=== PATIENT | female | born 1995 | race Caucasian/White ===

== ENCOUNTER 2018-01-30 17:47 | Emergency (ER) | payer OTHER ==
[2018-01-30 18:01] VITALS: BP 149/93; PULSE 85; RESP 16; TEMP 98.7
[2018-01-30] MEDS ORDERED: ONDANSETRON 4 MG ODT STARTER PACK 2 TAB BTL PO STA (18:30)
--- NOTE | 2018-01-30 18:31 | ED ---
Abdominal Pain HPI - General Chief Complaint: Abdominal Pain Stated Complaint: vomiting/diarrhea Time Seen by Provider: 01/30/18 18:02 Source: patient Mode of arrival: ambulatory Limitations: no limitations - History of Present Illness Initial Comments: 22-year-old female patient presents to the emergency department today requesting work note. Patient states she called in this morning because she was sick with vomiting and diarrhea. Patient states that her father is sick with similar symptoms this morning. States that she is currently feeling better however her work requires her to have a note to return. Patient states that she is experiencing some mild nausea. States that she has been able to keep down fluids since her last vomiting episode at 5:00. She denies any abdominal pain, fever, or chills with this. Denies any previous abdominal surgeries. She denies any hematemesis, hematochezia, or melena. Patient denies any recent rash, shortness breath, chest pain, back pain, numbness, tingling, dizziness, weakness, hematuria, dysuria, urinary urgency, urinary frequency, headache, visual changes, or any other complaints. She denies any chance of . - Related Data Home Medications Medication Instructions Recorded Confirmed Ibuprofen [Motrin Ib] 400 mg PO Q6H PRN 01/30/18 01/30/18 Allergies Allergy/AdvReac Type Severity Reaction Status Date / Time No Known Allergies Allergy Verified 01/30/18 18:31 Review of Systems ROS Statement: Those systems with pertinent positive or pertinent negative responses have been documented in the HPI. ROS Other: All systems not noted in ROS Statement are negative. Past Medical History Past Medical History: No Reported History History of Any Multi-Drug Resistant Organisms: None Reported Past Surgical History: Orthopedic Surgery Additional Past Surgical History / Comment(s): Left hand tendon surgery Past Psychological History: ADD/ADHD Smoking Status: Never smoker Past Alcohol Use History: None Reported Past Drug Use History: None Reported General Exam Limitations: no limitations General appearance: alert, in no apparent distress, other (This is a well- developed, obese adult female patient in no acute distress. Vital signs upon presentation are temperature 98.7F, pulse 85, respirations 16, blood pressure 149/93, pulse ox 97% on room air.) Eye exam: Present: normal appearance, PERRL, EOMI. Absent: scleral icterus, conjunctival injection, periorbital swelling ENT exam: Present: normal exam, normal oropharynx, mucous membranes moist Respiratory exam: Present: normal lung sounds bilaterally. Absent: respiratory distress, wheezes, rales, rhonchi, stridor Cardiovascular Exam: Present: regular rate, normal rhythm, normal heart sounds. Absent: systolic murmur, diastolic murmur, rubs, gallop, clicks GI/Abdominal exam: Present: soft, normal bowel sounds. Absent: distended, tenderness, guarding, rebound, rigid Neurological exam: Present: alert, oriented X3, CN II-XII intact Psychiatric exam: Present: normal affect, normal mood Skin exam: Present: warm, dry, intact, normal color. Absent: rash Course Vital Signs 01/30/18 17:57 Temperature 98.7 F Pulse Rate 85 Respiratory 16 Rate Blood Pressure 149/93 O2 Sat by Pulse 97 Oximetry Medical Decision Making - Medical Decision Making 22-year-old female patient presents to the emergency department today requesting a work note after having vomiting and diarrhea this morning. Patient states she is currently feeling well. I did offer to perform lab testing and treat her symptoms however she states that she does not want that she only wants a work note. Patient's vital signs are stable. She is afebrile. He'll discharge her at this time given work note to return tomorrow. She is instructed to follow-up with her primary care physician for recheck in 1-2 days. Return parameters discussed in detail. She verbalizes understanding and agrees this plan. Disposition Clinical Impression: Gastroenteritis Disposition: HOME SELF-CARE Condition: Good Instructions: Gastroenteritis (ED) Additional Instructions: Start with clear liquid diet and advance as tolerated. Follow-up through primary care physician for recheck 1-2 days. Return here immediately for any new, worsening, or concerning symptoms. Is patient prescribed a controlled substance at d/c from ED?: No Referrals: Mena Diggs MD [Primary Care Provider] - 1-2 days Time of Disposition: 18:31
== END 2018-01-30 18:55 | disposition home or self-care (01) ==
LOC: EC 17:47
DX: K52.9 Noninfective gastroenteritis and colitis, unspecified (principal); Z02.79 Encounter for issue of other medical certificate
CPT/HCPCS: 99283; S0119

== ENCOUNTER 2018-04-03 14:27 | Emergency (ER) | payer OTHER ==
--- NOTE | 2018-04-03 15:11 | ED ---
General Adult HPI - General Chief complaint: ENT Stated complaint: throat pain Source: patient, RN notes reviewed, old records reviewed Mode of arrival: ambulatory Limitations: no limitations - History of Present Illness Initial comments: 23-year-old female patient with no pertinent past medical history presents to ED with 2 day history of sore throat, dry cough, rhinitis. Patient states that all of these have been going on for approximately 2 days. 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 Patient denies nausea vomiting diarrhea, sinus pressure, fever chills, abdominal pain, chest pain, shortness of breath. Systemic: Pt denies fatigue, myalgia, fever/chills, rash. Pt denies weakness, night sweats, weight loss. Neuro: Pt denies headache, visual disturbances, syncope or pre-syncope. HEENT: Pt denies ocular discharge or irritation, otalgia, rhinorrhea, pharyngitis or notable lymphadenopathy. Cardiopulmonary: Pt denies chest pain, SOB, heart palpitations, dyspnea on exertion. Abdominal/GI: Pt denies abdominal pain, n/v/d. : Pt denies dysuria, burning w/ urination, frequency/urgency. Denies new onset urinary or bowel incontinence. MSK: Pt denies myalgia, loss of strength or function in extremities. Neuro: Pt denies new onset weakness, paresthesias. - Related Data Home Medications Medication Instructions Recorded Confirmed Ibuprofen [Motrin Ib] 400 mg PO Q6H PRN 01/30/18 01/30/18 Previous Rx's Medication Instructions Recorded Fluticasone Propionate [Flonase 1 - 2 spray EA NOSTRIL DAILY 5 04/03/18 Allergy Relief] Days ml Allergies Allergy/AdvReac Type Severity Reaction Status Date / Time No Known Allergies Allergy Verified 04/03/18 14:37 Review of Systems ROS Statement: Those systems with pertinent positive or pertinent negative responses have been documented in the HPI. ROS Other: All systems not noted in ROS Statement are negative. Past Medical History Past Medical History: No Reported History History of Any Multi-Drug Resistant Organisms: None Reported Past Surgical History: Orthopedic Surgery Additional Past Surgical History / Comment(s): Left hand tendon surgery Past Psychological History: ADD/ADHD Smoking Status: Never smoker Past Alcohol Use History: None Reported Past Drug Use History: None Reported General Exam - General Exam Comments Initial Comments: Constitutional: NAD, AOX3, Pt has pleasant affect. HEENT: NC/AT, trachea midline, neck supple, no lymphadenopathy. Posterior pharynx non erythematous, without exudates. External ears appear normal, without discharge. Mucous membranes moist. Eyes PERRLA, EOM intact. There is no scleral icterus. No pallor noted. Cardiopulmonary: RRR, no murmurs, rubs or gallops, no JVD noted. Lungs CTAB in anterior and posterior polo. No peripheral edema. Abdominal exam: Abdomen soft and non-distended. Abdomen non-tender to palpation in all 4 quadrants. Bowel sounds active in LLQ. No hepatosplenomegaly. No ecchymosis Neuro: CN II-XII grossly intact. No nuchal rigidity. MSK: No posterior calf tenderness bilaterally, homans sign negative bilaterally. Posterior tibialis and radial pulse +2 bilaterally. Sensation intact in upper and lower extremities. Full active ROM in upper and lower extremities, 5/5 stregnth. Limitations: no limitations Course Vital Signs 04/03/18 04/03/18 14:35 16:09 Temperature 98.1 F 97.6 F Pulse Rate 97 82 Respiratory 16 18 Rate Blood Pressure 185/93 176/106 O2 Sat by Pulse 99 99 Oximetry Medical Decision Making - Medical Decision Making 23-year-old female patient with no pertinent past medical history presents to ED with 2 day history of sore throat, dry cough, rhinitis. Patient states that all of these have been going on for approximately 2 days. 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 Patient denies nausea vomiting diarrhea, sinus pressure, fever chills, abdominal pain, chest pain, shortness of breath. Physical exam did not display acute pathology. Systems examined including neuro, HEENT, cardiopulmonary, abdominal, MSK. Laboratory investigations influenza and GABHS swabs negative. PT unable to provide urine sample. Patient blood pressure revealed to be moderately elevated ER. Patient states that she does have history of elevated blood pressure, was. See medicated for this issue, is not currently medicated. Patient to follow with primary care provider about hypertension. Chest x-ray did not display any acute process. Patient diagnosed with likely viral upper respiratory infection. Due to short timeline , new versus hampering cystitis, patient to continue to monitor symptoms and no abx prescribed. Patient prescribed flonase to decrease symptoms. Patient to follow up with primary care provider in 1-2 days to continue to evaluate the symptoms. Patient to return to ED if symptoms do not improve within 3 days or if new signs or symptoms develop including worsening cough, persisting sore throat, nausea vomiting diarrhea, fever chills, headache, changes in vision, any other new symptoms. Case discussed with Dr. Cobian. - Lab Data Lab Results 04/03/18 04/03/18 Range/Units 14:55 14:55 Influenza Type A RNA Not Detected (Not Detectd) Influenza Type B (PCR) Not Detected (Not Detectd) Group A Strep Rapid Negative (Negative) Disposition Clinical Impression: Upper respiratory infection Disposition: HOME SELF-CARE Condition: Good Instructions: Upper Respiratory Infection (ED) Additional Instructions: Patient to adhere to previously discussed treatment plan and will take medication(s) as directed. Patient to follow up with PCP in 1-2 days. Patient to return to ED if symptoms do not improve. Prescriptions: Fluticasone Propionate [Flonase Allergy Relief] 1 - 2 spray EA NOSTRIL DAILY 5 Days ml Is patient prescribed a controlled substance at d/c from ED?: No Referrals: Mena Diggs MD [Primary Care Provider] - 1-2 days Time of Disposition: 16:33
[2018-04-03 16:11] VITALS: BP 176/106; PULSE 82; RESP 18; TEMP 97.6
--- NOTE | 2018-04-03 16:23 | XR ---
EXAMINATION TYPE: XR chest 2V DATE OF EXAM: 04/03/2018 COMPARISON: None INDICATION: Pain, sore throat TECHNIQUE: Frontal and lateral views of the chest are obtained. FINDINGS: The heart size is normal. The pulmonary vasculature is normal. The lungs are clear. IMPRESSION: 1. No acute pulmonary process.
== END 2018-04-03 16:41 | disposition home or self-care (01) ==
LOC: EC 14:27
DX: J06.9 Acute upper respiratory infection, unspecified (principal); I10 Essential (primary) hypertension
CPT/HCPCS: 71046; 87081; 87430; 87502; 99284

== ENCOUNTER 2018-05-07 17:17 | Emergency (ER) | payer OTHER ==
[2018-05-07 17:30] VITALS: RESP 18; TEMP 98
--- NOTE | 2018-05-07 18:46 | ED ---
General Adult HPI - General Chief complaint: Upper Respiratory Infection Stated complaint: congestion/upset stomach Time Seen by Provider: 05/07/18 18:36 Source: patient, RN notes reviewed Mode of arrival: ambulatory Limitations: no limitations - History of Present Illness Initial comments: 23-year-old female presents to the emergency department for work release. Patient states she was congested today and did not want to go to work. Patient states that she was told by her job she needed a work note letting her return to work tomorrow. Patient states she has had congestion times one day. Patient denies any sore throat or cough. She denies any fevers or chills. She states she does not need anything done but just needs her work note. Patient has no other complaints at this time including shortness of breath, chest pain, abdominal pain, nausea or vomiting, headache, or visual changes. - Related Data Home Medications Medication Instructions Recorded Confirmed Ibuprofen [Motrin Ib] 400 mg PO Q6H PRN 01/30/18 01/30/18 Previous Rx's Medication Instructions Recorded Fluticasone Propionate [Flonase 1 - 2 spray EA NOSTRIL DAILY 5 04/03/18 Allergy Relief] Days ml guaiFENesin [Mucinex] 600 mg PO Q12H PRN #20 tab.er.12h 05/07/18 Allergies Allergy/AdvReac Type Severity Reaction Status Date / Time No Known Allergies Allergy Verified 05/07/18 17:30 Review of Systems ROS Statement: Those systems with pertinent positive or pertinent negative responses have been documented in the HPI. ROS Other: All systems not noted in ROS Statement are negative. Past Medical History Past Medical History: No Reported History History of Any Multi-Drug Resistant Organisms: None Reported Past Surgical History: Orthopedic Surgery Additional Past Surgical History / Comment(s): Left hand tendon surgery Past Psychological History: ADD/ADHD Smoking Status: Never smoker Past Alcohol Use History: None Reported Past Drug Use History: None Reported General Exam Limitations: no limitations General appearance: alert, in no apparent distress Head exam: Present: atraumatic, normocephalic, normal inspection Eye exam: Present: normal appearance, PERRL, EOMI. Absent: scleral icterus, conjunctival injection, periorbital swelling ENT exam: Present: normal oropharynx, mucous membranes moist, TM's normal bilaterally, normal external ear exam, other (Mild nasal congestion noted, no edema or erythema noted of the sinuses, no tenderness to the maxillary or frontal sinuses with palpation.) Neck exam: Present: normal inspection, full ROM. Absent: tenderness, meningismus, lymphadenopathy Respiratory exam: Present: normal lung sounds bilaterally. Absent: respiratory distress, wheezes, rales, rhonchi, stridor Cardiovascular Exam: Present: regular rate, normal rhythm, normal heart sounds. Absent: systolic murmur, diastolic murmur, rubs, gallop, clicks GI/Abdominal exam: Present: soft, normal bowel sounds. Absent: distended, tenderness, guarding, rebound, rigid Neurological exam: Present: alert, oriented X3, CN II-XII intact Psychiatric exam: Present: normal affect, normal mood Course Vital Signs 05/07/18 05/07/18 17:26 18:59 Temperature 98.0 F Pulse Rate 97 93 Respiratory 18 18 Rate Blood Pressure 149/105 167/97 O2 Sat by Pulse 97 100 Oximetry Medical Decision Making - Medical Decision Making 23-year-old female presents to the emergency department for a chief complaint of congestion times one day. Patient states she did not want her to work today and needs a work note for release. She does not have any fever, sore throat, cough. Patient states other than the congestion she is feeling fine and needs a work note to release her to go back to work tomorrow. I did give patient note. I also offered to test patient for the flu but given that she is not having fever she does not think this is necessary. I did write prescription for Mucinex. Discussed following up with primary care for these symptoms as well as hypertension and returning if she has any worsening symptoms. Disposition Clinical Impression: Sinus congestion Disposition: HOME SELF-CARE Condition: Good Instructions: Cold Symptoms (ED) Additional Instructions: Take Mucinex [id number]. Please follow up with primary care in 1-2 days. Return to the emergency department if you have any worsening symptoms. Prescriptions: guaiFENesin [Mucinex] 600 mg PO Q12H PRN #20 tab.er.12h PRN Reason: Congestion Is patient prescribed a controlled substance at d/c from ED?: No Referrals: Mena Diggs MD [Primary Care Provider] - 1-2 days Time of Disposition: 18:46
[2018-05-07 19:01] VITALS: BP 167/97; PULSE 93
== END 2018-05-07 18:59 | disposition home or self-care (01) ==
LOC: EC 17:17
DX: R09.81 Nasal congestion (principal); K30 Functional dyspepsia; Z98.890 Other specified postprocedural states
CPT/HCPCS: 99283

== ENCOUNTER → 2018-06-11 | Outpatient (CLI) | payer OTHER ==
[2018-06-11 14:30] LABS: Basophils % (A) 0 %; Eosinophils # (A) 0.1 k/uL (0-0.7); Eosinophils % (A) 1 %; HCT 42.8 % (34.0-46.0); HGB 13.8 gm/dL (11.4-16.0); Lymphocytes # (A) 2.4 k/uL (1.0-4.8); Lymphocytes % (A) 28 %; MCH 27.8 pg (25.0-35.0); MCHC 32.2 g/dL (31.0-37.0); MCV 86.1 fL (80.0-100.0); Mean Platelet Volume 5.7; Monocytes # (A) 0.4 k/uL (0-1.0); Monocytes % (A) 5 %; Neutrophils # (A) 5.7 k/uL (1.3-7.7); Neutrophils % (A) 65 %; Platelet Count 375 k/uL (150-450); RBC 4.97 m/uL (3.80-5.40); RDW 13.6 % (11.5-15.5); WBC 8.7 k/uL (3.8-10.6)
[2018-06-11 23:28] LABS: Calcium 9.3 mg/dL (8.7-10.3); LDL Cholesterol,Calculated 119.6 mg/dL (0.0-131.0); Potassium 4.7 mmol/L (3.5-5.5); VLDL Calculation 17.4 mg/dL (5.00-40.00)
== END ==
LOC: LABWHC1 13:43
PROVIDERS: ATTEND Internal Medicine
DX: Z13.0 Encounter for screening for diseases of the blood and blood-forming organs and certain disorders involving the immune mechanism (principal); Z13.228 Encounter for screening for other metabolic disorders; Z13.220 Encounter for screening for lipoid disorders; Z13.29 Encounter for screening for other suspected endocrine disorder
CPT/HCPCS: 36415; 80048; 80061; 82306; 84443; 85025

== ENCOUNTER 2018-07-23 17:18 | Emergency (ER) | payer OTHER ==
[2018-07-23 17:30] VITALS: BP 162/94; PULSE 82; RESP 18; TEMP 98.7
[2018-07-23] MEDS ORDERED: FAMOTIDINE 20 MG TAB PO STA (17:46)
[2018-07-23] MEDS ORDERED: methylPREDNISolone SOD SUCCI 125 MG/2 ML VIAL IM ONE (17:46)
[2018-07-23] MEDS ORDERED: diphenhydrAMINE 50 MG CAP PO STA (17:46)
--- NOTE | 2018-07-23 17:58 | ED ---
Allergic Reaction HPI - General Chief complaint: Allergic Reaction Stated complaint: Swollen lip Time Seen by Provider: 07/23/18 17:33 Source: patient, RN notes reviewed, old records reviewed Mode of arrival: ambulatory Limitations: no limitations - History of Present Illness Initial Comments: Patient is a 23-year-old female presents emergency department today with lower lip swelling. She reports she didn't do anything have any new exposures to cause reaction. She reports that yesterday she did have some upper lip swelling. She is currently healing from a cold sore in her upper lip. Patient has had no nausea or vomiting. No chest pain shortness breath. She denies any tongue swelling or difficulty breathing. She is coughing. - Related Data Home Medications Medication Instructions Recorded Confirmed Ibuprofen [Motrin Ib] 400 mg PO Q6H PRN 01/30/18 01/30/18 Previous Rx's Medication Instructions Recorded Fluticasone Propionate [Flonase 1 - 2 spray EA NOSTRIL DAILY 5 04/03/18 Allergy Relief] Days ml guaiFENesin [Mucinex] 600 mg PO Q12H PRN #20 tab.er.12h 05/07/18 Famotidine [Pepcid] 20 mg PO BID #14 tablet 07/23/18 diphenhydrAMINE [Benadryl] 25 mg PO QID PRN #20 capsule 07/23/18 predniSONE 10 mg PO DAILY #15 tab 07/23/18 Allergies Allergy/AdvReac Type Severity Reaction Status Date / Time No Known Allergies Allergy Verified 07/23/18 17:30 Review of Systems ROS Statement: Those systems with pertinent positive or pertinent negative responses have been documented in the HPI. ROS Other: All systems not noted in ROS Statement are negative. Past Medical History Past Medical History: No Reported History History of Any Multi-Drug Resistant Organisms: None Reported Past Surgical History: Orthopedic Surgery Additional Past Surgical History / Comment(s): Left hand tendon surgery Past Psychological History: ADD/ADHD Smoking Status: Never smoker Past Alcohol Use History: None Reported Past Drug Use History: None Reported General Exam - General Exam Comments Initial Comments: 23-year-old female. Alert and oriented. No significant distress. Limitations: no limitations General appearance: alert, in no apparent distress Head exam: Present: atraumatic, normocephalic, normal inspection Eye exam: Present: normal appearance, PERRL, EOMI. Absent: scleral icterus, conjunctival injection, periorbital swelling ENT exam: Present: normal exam, mucous membranes moist, other (Patient has evidence of lower lip swelling over the right half of her lower lip. No trauma no bruising noted. No tongue swelling noted.) Neck exam: Present: normal inspection. Absent: tenderness, meningismus, lymphadenopathy Respiratory exam: Present: normal lung sounds bilaterally. Absent: respiratory distress, wheezes, rales, rhonchi, stridor Cardiovascular Exam: Present: regular rate, normal rhythm, normal heart sounds. Absent: systolic murmur, diastolic murmur, rubs, gallop, clicks GI/Abdominal exam: Present: soft, normal bowel sounds. Absent: distended, tenderness, guarding, rebound, rigid Extremities exam: Present: normal inspection, full ROM, normal capillary refill. Absent: tenderness, pedal edema, joint swelling, calf tenderness Back exam: Present: normal inspection Neurological exam: Present: alert, oriented X3, CN II-XII intact Psychiatric exam: Present: normal affect, normal mood Skin exam: Present: warm, dry, intact, normal color. Absent: rash Course Vital Signs 07/23/18 17:27 Temperature 98.7 F Pulse Rate 82 Respiratory 18 Rate Blood Pressure 162/94 O2 Sat by Pulse 100 Oximetry Medical Decision Making - Medical Decision Making This is a well-appearing 23-year-old female presents for shortness of lower lip swelling. No acute onset. Patient poor she did have some swelling earlier in the week. Currently being treated for a cold sore that is healing. Discussed concern for angioedema. Shouldn't has no medications that she is on. Patient otherwise appears well. She has no signs of respiratory distress or any tongue swelling or difficulty breathing. Patient was given IM Solu-Medrol Benadryl Pepcid. Discussed cool compresses over the area. Discussed PCP follow-up. All questions answered. Disposition Clinical Impression: Angioedema of lips Disposition: HOME SELF-CARE Condition: Good Instructions (If sedation given, give patient instructions): Angioedema (ED) Additional Instructions: Patient advised to follow-up with your primary care doctor. If there is any difficulty breathing or significant tongue swelling please return to the ER for reevaluation. Cool compresses over the lip. Prescriptions: diphenhydrAMINE [Benadryl] 25 mg PO QID PRN #20 capsule PRN Reason: Itching Famotidine [Pepcid] 20 mg PO BID #14 tablet predniSONE 10 mg PO DAILY #15 tab Is patient prescribed a controlled substance at d/c from ED?: No Referrals: Mena Diggs MD [Primary Care Provider] - 1-2 days Time of Disposition: 17:53
== END 2018-07-23 18:00 | disposition home or self-care (01) ==
LOC: EC 17:18
DX: T78.3XXA Angioneurotic edema, initial encounter (principal); R05 Cough
CPT/HCPCS: 99283; 96372; J2930

== ENCOUNTER 2018-09-21 16:38 | Emergency (ER) | payer OTHER ==
[2018-09-21 16:44] VITALS: BP 139/89; PULSE 92; RESP 18; TEMP 97.7
--- NOTE | 2018-09-21 17:56 | ED ---
ENT HPI - General Chief complaint: ENT Stated complaint: lip swelling Time Seen by Provider: 09/21/18 16:46 Source: patient, RN notes reviewed, old records reviewed Mode of arrival: ambulatory Limitations: no limitations - History of Present Illness Initial comments: This is a 23-year-old female the ER for evaluation of lip swelling, patient has history of lip swelling seen of an upset about multiple, patient recently. She dietary decisions. 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 No shortness of breath no tongue swelling. He took Benadryl with mild improvement MD complaint: other (Lip swelling) Location: upper lip, lower lip Severity: mild Severity scale (1-10): 2 Consistency: constant Improves with: none Worsens with: none - Related Data Home Medications Medication Instructions Recorded Confirmed Cholecalciferol (Vitamin D3) 2,000 unit PO DAILY 09/21/18 09/21/18 [Vitamin D3] diphenhydrAMINE [Benadryl] 25 mg PO DAILY PRN 09/21/18 09/21/18 Allergies Allergy/AdvReac Type Severity Reaction Status Date / Time chicken derived [Chicken] Allergy Swelling Verified 09/21/18 17:22 Review of Systems ROS Statement: Those systems with pertinent positive or pertinent negative responses have been documented in the HPI. ROS Other: All systems not noted in ROS Statement are negative. Past Medical History Past Medical History: No Reported History History of Any Multi-Drug Resistant Organisms: None Reported Past Surgical History: Orthopedic Surgery Additional Past Surgical History / Comment(s): Left hand tendon surgery Past Psychological History: ADD/ADHD Smoking Status: Never smoker Past Alcohol Use History: None Reported Past Drug Use History: None Reported General Exam - General Exam Comments Initial Comments: Mild lip swelling, no tongue swelling, no stridor Limitations: no limitations General appearance: alert, in no apparent distress Head exam: Present: atraumatic, normocephalic, normal inspection Eye exam: Present: normal appearance, PERRL, EOMI. Absent: scleral icterus, conjunctival injection, periorbital swelling ENT exam: Present: normal exam, mucous membranes moist Neck exam: Present: normal inspection. Absent: tenderness, meningismus, lymphadenopathy Respiratory exam: Present: normal lung sounds bilaterally. Absent: respiratory distress, wheezes, rales, rhonchi, stridor Cardiovascular Exam: Present: regular rate, normal rhythm, normal heart sounds. Absent: systolic murmur, diastolic murmur, rubs, gallop, clicks GI/Abdominal exam: Present: soft, normal bowel sounds. Absent: distended, tenderness, guarding, rebound, rigid Extremities exam: Present: normal inspection, full ROM, normal capillary refill. Absent: tenderness, pedal edema, joint swelling, calf tenderness Back exam: Present: normal inspection Neurological exam: Present: alert, oriented X3, CN II-XII intact Psychiatric exam: Present: normal affect, normal mood Skin exam: Present: warm, dry, intact, normal color. Absent: rash Course Vital Signs 09/21/18 16:40 Temperature 97.7 F Pulse Rate 92 Respiratory 18 Rate Blood Pressure 139/89 O2 Sat by Pulse 99 Oximetry Medical Decision Making - Medical Decision Making Voice 3 female the ER for evaluation. Patient is currently having lab swelling, no other swelling noted. Patient be discharged on steroids and antihistamines. Disposition Clinical Impression: Lip swelling Disposition: HOME SELF-CARE Condition: Good Instructions (If sedation given, give patient instructions): Angioedema (ED) Is patient prescribed a controlled substance at d/c from ED?: No Referrals: Mena Diggs MD [Primary Care Provider] - 1-2 days
== END 2018-09-21 18:22 | disposition home or self-care (01) ==
LOC: EC 16:38
DX: R22.0 Localized swelling, mass and lump, head (principal); Z79.899 Other long term (current) drug therapy; Z91.018 Allergy to other foods
CPT/HCPCS: 99283

== ENCOUNTER 2018-10-23 15:03 | Emergency (ER) | payer OTHER ==
[2018-10-23] MEDS ORDERED: methylPREDNISolone SOD SUCCI 125 MG/2 ML VIAL IV STA (15:41)
[2018-10-23] MEDS ORDERED: FAMOTIDINE 20 MG/2 ML VIAL IV STA (15:41)
[2018-10-23] MEDS ORDERED: diphenhydrAMINE 50 MG/ML 1 ML VIAL IVP STA (15:41)
[2018-10-23] MEDS ORDERED: SODIUM CHLORIDE 0.9% 1,000 ML IV STA (15:41)
--- NOTE | 2018-10-23 15:47 | ED ---
General Adult HPI - General Chief complaint: Allergic Reaction Stated complaint: Allergic reaction, swollen lips & hives Time Seen by Provider: 10/23/18 15:13 Source: patient, RN notes reviewed Mode of arrival: ambulatory Limitations: no limitations - History of Present Illness Initial comments: Patient is a pleasant 23-year-old female presenting to the emergency Department with complaints of swelling of the lips. Patient also has noticed rash on her arms, right more than left. Rash is itchy. Patient denies any difficulty in breathing. Patient denies any swelling of her tongue or throat. Patient does have a history of similar symptoms previously however is unclear why. Patient is unable to identify anything that could be causing it at this time. Patient does not take any routine medications. Patient did take 25 mg of Benadryl earlier with mild improvement of symptoms. Onset of symptoms was less than an hour ago. - Related Data Previous Rx's Medication Instructions Recorded predniSONE 20 mg PO BID #10 tab 10/23/18 Allergies Allergy/AdvReac Type Severity Reaction Status Date / Time chicken derived [Chicken] Allergy Swelling Verified 10/23/18 16:26 Review of Systems ROS Statement: Those systems with pertinent positive or pertinent negative responses have been documented in the HPI. ROS Other: All systems not noted in ROS Statement are negative. Constitutional: Denies: fever Eyes: Denies: eye pain ENT: Denies: ear pain Respiratory: Denies: cough, dyspnea, stridor Cardiovascular: Denies: chest pain Endocrine: Denies: fatigue Gastrointestinal: Denies: abdominal pain, nausea Genitourinary: Denies: dysuria Musculoskeletal: Denies: back pain Skin: Denies: rash Neurological: Denies: weakness Past Medical History Past Medical History: No Reported History History of Any Multi-Drug Resistant Organisms: None Reported Past Surgical History: Orthopedic Surgery Additional Past Surgical History / Comment(s): Left hand tendon surgery Past Psychological History: ADD/ADHD Smoking Status: Never smoker Past Alcohol Use History: None Reported Past Drug Use History: None Reported General Exam Limitations: no limitations General appearance: alert, in no apparent distress Head exam: Present: atraumatic Eye exam: Present: normal appearance, PERRL, EOMI ENT exam: Present: other (Mild to moderate angioedema of the lips. No angioedema of the tongue or pharynx or uvula. No dyspnea.) Neck exam: Present: normal inspection. Absent: tenderness Respiratory exam: Present: normal lung sounds bilaterally. Absent: respiratory distress, wheezes, stridor Cardiovascular Exam: Present: regular rate, normal rhythm GI/Abdominal exam: Present: soft. Absent: tenderness Extremities exam: Present: normal inspection Neurological exam: Present: alert Psychiatric exam: Present: normal affect, normal mood Skin exam: Present: urticaria (Mild urticarial rash right greater than left arm, more so on the forearm.) Course Vital Signs 10/23/18 10/23/18 15:04 15:56 Temperature 98.3 F Pulse Rate 93 95 Respiratory 18 18 Rate Blood Pressure 189/109 129/88 O2 Sat by Pulse 98 99 Oximetry Medical Decision Making - Medical Decision Making Patient reevaluated and improved. Lip swelling is approximately 50% and is now mild. Still no dyspnea or swelling of the tongue or throat. Rash has resolved. Patient updated on results and need for follow-up. Disposition Clinical Impression: Angioedema Disposition: HOME SELF-CARE Condition: Stable Instructions (If sedation given, give patient instructions): Angioedema (ED) Additional Instructions: Please follow-up with primary care physician in the next day or 2 for recheck. Please consider ALLERGY testing. Return for difficulty breathing, increased lip swelling, swelling of the tongue or throat, worsening symptoms or other concerns. Continue [id number] Benadryl for the next 5 days. Prescriptions: predniSONE 20 mg PO BID #10 tab Is patient prescribed a controlled substance at d/c from ED?: No Referrals: Mena Diggs MD [Primary Care Provider] - 1-2 days Time of Disposition: 16:52
[2018-10-23 15:57] VITALS: PULSE 95
[2018-10-23 16:55] VITALS: BP 118/79; RESP 20; TEMP 97.8
== END 2018-10-23 17:02 | disposition home or self-care (01) ==
LOC: EC 15:03
DX: T78.3XXA Angioneurotic edema, initial encounter (principal); Z91.018 Allergy to other foods
CPT/HCPCS: 99283; 96374; 96375 ×2; 96361; J1200; J2930

== ENCOUNTER 2022-05-17 19:38 | Emergency (ER) | payer BC ==
[2022-05-17 19:47] LABS: Glucose,Whole Blood 397 mg/dL (70-110)
[2022-05-17] MEDS ORDERED: SODIUM CHLORIDE 0.9% 1,000 ML IV STA (20:07)
[2022-05-17 20:30] LABS: Appearance,Urine Cloudy (Clear); Bacteria,Urine Rare /hpf; Bilirubin,Urine Negative (Negative); Blood,Urine Negative (Negative); Color,Urine Yellow; Glucose,Urine (UA) 4+ (Negative); Ketones,Urine Negative (Negative); Leukocyte Esterase,Urine Large (Negative); Mucus,Urine Rare /hpf; Nitrite,Urine Negative (Negative); Protein,Urine Negative (Negative); RBC,Urine 6 /hpf (0-5); Specific Gravity,Urine 1.032 (1.001-1.035); Squamous Epithelial Cell,Urine 5 /hpf (0-4); Urobilinogen,Urine <2.0 mg/dL (<2.0); WBC,Urine 22 /hpf (0-5)
[2022-05-17 20:31] LABS: Basophils # (A) 0.1 k/uL (0-0.2); Basophils % (A) 1 %; Eosinophils # (A) 0.2 k/uL (0-0.7); Eosinophils % (A) 2 %; HCT 42.3 % (34.0-46.0); HGB 13.7 gm/dL (11.4-16.0); Lymphocytes # (A) 2.6 k/uL (1.0-4.8); Lymphocytes % (A) 26 %; MCH 27.4 pg (25.0-35.0); MCHC 32.3 g/dL (31.0-37.0); MCV 84.9 fL (80.0-100.0); Mean Platelet Volume 7.1; Monocytes # (A) 0.5 k/uL (0-1.0); Monocytes % (A) 5 %; Neutrophils # (A) 6.4 k/uL (1.3-7.7); Neutrophils % (A) 65 %; Platelet Count 379 k/uL (150-450); RBC 4.98 m/uL (3.80-5.40); RDW 14.4 % (11.5-15.5); WBC 9.9 k/uL (3.8-10.6)
[2022-05-17 20:38] VITALS: RESP 17
[2022-05-17 20:38] LABS: ALT 139 U/L (4-34); African American GFR (CKD) >90 (>60 ml/min/1.73 sqM); Albumin 4.4 g/dL (3.5-5.0); Alkaline Phosphatase 90 U/L (38-126); Anion Gap 9 mmol/L; Blood Urea Nitrogen 20 mg/dL (7-17); Calcium 9.4 mg/dL (8.4-10.2); Carbon Dioxide 29 mmol/L (22-30); Chloride 98 mmol/L (98-107); Glucose 382 mg/dL (74-99); Non-African American GFR(CKD) >90 (>60 ml/min/1.73 sqM); Sodium 136 mmol/L (137-145); Total Bilirubin 0.8 mg/dL (0.2-1.3); Total Protein 7.8 g/dL (6.3-8.2)
[2022-05-17 20:40] LABS: Partial Thromboplastin Time 25.7 sec (22.0-30.0); Prothrombin Time 10.3 sec (9.0-12.0)
--- NOTE | 2022-05-17 20:46 | ED ---
General Adult HPI - General Source: patient Mode of arrival: ambulatory Limitations: no limitations <Mily Ferro - Last Filed: 05/17/22 20:48> <Phill Alcala - Last Filed: 05/17/22 22:22> - General Chief complaint: Neuro Symptoms/Deficit Stated complaint: Sugar elevated Time Seen by Provider: 05/17/22 19:50 - History of Present Illness Initial comments: 27-year-old female with past medical history of hypertension, type 2 diabetes mellitus, hypercholesterolemia who presents to the emergency department repor ting blurred vision for the past week. She has been taking her medications as directed for hypertension and diabetes. She is on metformin. Reports that this past week her glucose was 600. She is not feeling well at work this evening. Was having significant visual disturbance. Denies healthy eating habits or exercise. Denies headaches or chest pain. No shortness of breath. Does have significant lower extremity edema for which she takes Lasix. Denies concern for . No other alleviating, precipitating or modifying factors (Mily Ferro) - Related Data Home Medications Medication Instructions Recorded Confirmed Atorvastatin [Lipitor] 20 mg PO HS 02/02/22 05/17/22 Enalapril Maleate 20 mg PO DAILY 02/02/22 05/17/22 Furosemide [Lasix] 20 mg PO DAILY 02/02/22 05/17/22 Metoprolol Succinate (ER) [Toprol 25 mg PO HS 02/02/22 05/17/22 Xl] Omeprazole 20 mg PO DAILY 02/02/22 05/17/22 Potassium Chloride ER [K-Dur 20] 20 meq PO DAILY 02/02/22 05/17/22 metFORMIN HCL [Glucophage] 1,000 mg PO BID 02/02/22 05/17/22 Allergies Allergy/AdvReac Type Severity Reaction Status Date / Time chicken derived [Chicken] Allergy Swelling Verified 05/17/22 20:47 Review of Systems ROS Other: All systems not noted in ROS Statement are negative. <Mily Ferro - Last Filed: 05/17/22 20:48> ROS Other: All systems not noted in ROS Statement are negative. <Phill Alcala - Last Filed: 05/17/22 22:22> ROS Statement: Those systems with pertinent positive or pertinent negative responses have been documented in the HPI. Past Medical History Past Medical History: Diabetes Mellitus, Hypertension History of Any Multi-Drug Resistant Organisms: None Reported Past Surgical History: Orthopedic Surgery Additional Past Surgical History / Comment(s): Left hand tendon surgery Past Anesthesia/Blood Transfusion Reactions: No Reported Reaction Past Psychological History: ADD/ADHD Smoking Status: Never smoker Past Alcohol Use History: None Reported Past Drug Use History: None Reported <Mily Ferro - Last Filed: 05/17/22 20:48> General Exam Limitations: no limitations General appearance: alert, in no apparent distress Head exam: Present: atraumatic, normocephalic, normal inspection Eye exam: Present: normal appearance, PERRL, EOMI. Absent: scleral icterus, conjunctival injection, periorbital swelling ENT exam: Present: normal exam, mucous membranes moist Neck exam: Present: normal inspection. Absent: tenderness, meningismus, lym phadenopathy Respiratory exam: Present: normal lung sounds bilaterally. Absent: respiratory distress, wheezes, rales, rhonchi, stridor Cardiovascular Exam: Present: regular rate, normal rhythm, normal heart sounds. Absent: systolic murmur, diastolic murmur, rubs, gallop, clicks GI/Abdominal exam: Present: soft, normal bowel sounds. Absent: distended, tenderness, guarding, rebound, rigid Extremities exam: Present: pedal edema. Absent: tenderness, joint swelling, calf tenderness Back exam: Present: normal inspection Neurological exam: Present: alert, oriented X3, CN II-XII intact Psychiatric exam: Present: normal affect, normal mood Skin exam: Present: warm, dry, intact, normal color. Absent: rash <Mily Ferro - Last Filed: 05/17/22 20:48> Course Vital Signs 05/17/22 05/17/22 05/17/22 19:47 20:38 21:28 Temperature 98 F Pulse Rate 100 104 H 99 Respiratory 20 17 17 Rate Blood Pressure 194/125 176/106 147/91 O2 Sat by Pulse 96 98 97 Oximetry 05/17/22 21:35 Temperature 98.2 F Pulse Rate 105 H Respiratory 17 Rate Blood Pressure 163/88 O2 Sat by Pulse 97 Oximetry EKG Findings - EKG Comments: EKG Findings:: EKG demonstrates sinus tachycardia with a rate of 100. [place] interval 147. QRS 89. QTC of 410. No acute ST segment elevations or depressions <Mily Ferro - Last Filed: 05/17/22 20:48> Medical Decision Making - Lab Data Result diagrams: 05/17/22 20:13 <Mily Ferro - Last Filed: 05/17/22 20:48> - Lab Data Result diagrams: 05/17/22 20:13 05/17/22 20:13 <Phill Alcala - Last Filed: 05/17/22 22:22> - Medical Decision Making Was pt. sent in by a medical professional or institution (, [facility], ABAP DEVELOPER, urgent care, hospital, or retirement...) When possible be specific @ -[No] Did you speak to anyone other than the patient for history (EMS, parent, family, police, friend...)? What history was obtained from this source Patient's mother Did you review nursing and triage notes (agree or disagree)? Why? @ -[I reviewed and agree with nursing and triage notes] Were old charts reviewed (outside hosp., previous admission, EMS record, old EKG , old radiological studies, urgent care reports/EKG's, retirement records)? Report findings @ -[No old charts were reviewed] Differential Diagnosis (chest pain, altered mental status, abdominal pain women, abdominal pain men, vaginal bleeding, weakness, fever, dyspnea, syncope, headache, dizziness, GI bleed, back pain, seizure, CVA, palpatations, mental hea lth)? DKA, CVA, hyperglycemia, accelerated hypertension, hypertensive emergency EKG interpreted by me (3pts min.). Yes X-rays interpreted by me (1pt min.). Yes CT interpreted by me (1pt min.). @ -[None done] U/S interpreted by me (1pt. min.). @ -[None done] What testing was considered but not performed or refused? (CT, X-rays, U/S, labs)? Why? @ -[None] What meds were considered but not given or refused? Why? @ -[None] Did you discuss the management of the patient with other professionals (professionals i.e. , RAFAELA, ABAP DEVELOPER, lab, RT, psych nurse, group social worker, museum preparator, teacher, public information officer, disability case manager)? Give summary @ -[No] Was smoking cessation discussed for >3mins.? @ -[No] Was critical care preformed (if so, how long)? @ -[No] Were there social determinants of health that impacted care today? How? (Homelessness, low income, unemployed, alcoholism, drug addiction, transportation, low edu. Level, literacy, decrease access to med. care, care home, rehab)? @ -[No] Was there de-escalation of care discussed even if they declined (Discuss DNR or withdrawal of care, Hospice)? DNR status @ -[No] What co-morbidities impacted this encounter? (DM, HTN, Smoking, COPD, CAD, Cancer, CVA, ARF, Chemo, Hep., AIDS, mental health diagnosis, sleep apnea, morbid obesity)? Hypertension, diabetes, high cholesterol, morbid obesity Was patient admitted / discharged? Hospital course, mention meds given and route, prescriptions, significant lab abnormalities, going to OR and other pertinent info. Upon arrival patient was placed into room 8. History and physical exam was performed. Accu-Chek is performed and is 397. Visual acuity is obtained and the patient does have 20/70 vision in the right eye and 20/100 vision in the left eye. IV is established. 1 L of fluid is ordered. Chest x-ray is performed. Results are pending at this time patient will be signed out to Dr. Alcala. (Mily Ferro) I assumed care of the patient from Dr. Ferro. On reevaluation, the patient was resting in bed her blood pressure did decrease. The patient received 1 L normal saline fluid. On reevaluation, the patient did not have any further acute complaints and therefore no further imaging nor testing will be performed at this time. The patient did maintain that she had nearsighted vision difficulties however was able to read things up closely without any blurry vision noted. There was no concern for any intracranial process at this time and therefore CT scan will not be ordered. The patient did have any headache, lightheadedness or dizziness. The patient had an extensive conversation between myself, the patient and her parents regarding dietary choices and the imp ortance of following up with her primary care physician. She did have a follow- up with her PCP on Monday of next week and she was told to follow-up. They did state that they're trying given appointment for Monday. The patient remained stable and no further acute complaints were stated. The patient was deemed stable for discharge and told to follow-up with her PCP as previous he scheduled. The patient was also advised report back to the emergency department if her pain or symptoms became acutely worse including any lightheadedness, dizziness, nausea or vomiting. The patient requested a work note and was given one. The patient was discharged home in stable condition with her parents. (Phill Alcala) - Lab Data Lab Results 05/17/22 05/17/22 05/17/22 Range/Units 19:46 20:13 20:13 WBC 9.9 (3.8-10.6) k/uL RBC 4.98 (3.80-5.40) m/uL Hgb 13.7 (11.4-16.0) gm/dL Hct 42.3 (34.0-46.0) % MCV 84.9 (80.0-100.0) fL MCH 27.4 (25.0-35.0) pg MCHC 32.3 (31.0-37.0) g/dL RDW 14.4 (11.5-15.5) % Plt Count 379 (150-450) k/uL MPV 7.1 Neutrophils % 65 % Lymphocytes % 26 % Monocytes % 5 % Eosinophils % 2 % Basophils % 1 % Neutrophils # 6.4 (1.3-7.7) k/uL Lymphocytes # 2.6 (1.0-4.8) k/uL Monocytes # 0.5 (0-1.0) k/uL Eosinophils # 0.2 (0-0.7) k/uL Basophils # 0.1 (0-0.2) k/uL PT 10.3 (9.0-12.0) sec INR 1.0 (<1.2) APTT 25.7 (22.0-30.0) sec Sodium (137-145) mmol/L Potassium (3.5-5.1) mmol/L Chloride (98-107) mmol/L Carbon Dioxide (22-30) mmol/L Anion Gap mmol/L BUN (7-17) mg/dL Creatinine (0.52-1.04) mg/dL Est GFR (CKD-EPI)AfAm (>60 ml/min/1.73 sqM) Est GFR (CKD-EPI)NonAf (>60 ml/min/1.73 sqM) Glucose (74-99) mg/dL POC Glucose (mg/dL) 397 H (70-110) mg/dL POC Glu Staff Physical Therapy Assistant ID Riki Bosch Plasma Lactic Acid Tim (0.7-2.0) mmol/L Calcium (8.4-10.2) mg/dL Magnesium (1.6-2.3) mg/dL Total Bilirubin (0.2-1.3) mg/dL AST (14-36) U/L ALT (4-34) U/L Alkaline Phosphatase (38-126) U/L Troponin I (0.000-0.034) ng/mL Total Protein (6.3-8.2) g/dL Albumin (3.5-5.0) g/dL TSH (0.465-4.680) mIU/L Urine Color Urine Appearance (Clear) Urine pH (5.0-8.0) Ur Specific [place] (1.001-1.035) Urine Protein (Negative) Urine Glucose (UA) (Negative) Urine Ketones (Negative) Urine Blood (Negative) Urine Nitrite (Negative) Urine Bilirubin (Negative) Urine Urobilinogen (<2.0) mg/dL Ur Leukocyte Esterase (Negative) Urine RBC (0-5) /hpf Urine WBC (0-5) /hpf Ur Squamous Epith Cells (0-4) /hpf Urine Bacteria (None) /hpf Urine Mucus (None) /hpf Urine HCG, Qual (Not Detectd) 05/17/22 05/17/22 05/17/22 Range/Units 20:13 20:13 20:13 WBC (3.8-10.6) k/uL RBC (3.80-5.40) m/uL Hgb (11.4-16.0) gm/dL Hct (34.0-46.0) % MCV (80.0-100.0) fL MCH (25.0-35.0) pg MCHC (31.0-37.0) g/dL RDW (11.5-15.5) % Plt Count (150-450) k/uL MPV Neutrophils % % Lymphocytes % % Monocytes % % Eosinophils % % Basophils % % Neutrophils # (1.3-7.7) k/uL Lymphocytes # (1.0-4.8) k/uL Monocytes # (0-1.0) k/uL Eosinophils # (0-0.7) k/uL Basophils # (0-0.2) k/uL PT (9.0-12.0) sec INR (<1.2) APTT (22.0-30.0) sec Sodium 136 L (137-145) mmol/L Potassium 4.7 (3.5-5.1) mmol/L Chloride 98 (98-107) mmol/L Carbon Dioxide 29 (22-30) mmol/L Anion Gap 9 mmol/L BUN 20 H (7-17) mg/dL Creatinine 0.70 (0.52-1.04) mg/dL Est GFR (CKD-EPI)AfAm >90 (>60 ml/min/1.73 sqM) Est GFR (CKD-EPI)NonAf >90 (>60 ml/min/1.73 sqM) Glucose 382 H (74-99) mg/dL POC Glucose (mg/dL) (70-110) mg/dL POC Glu Staff Physical Therapy Assistant ID Plasma Lactic Acid Tim 2.2 H* (0.7-2.0) mmol/L Calcium 9.4 (8.4-10.2) mg/dL Magnesium 1.8 (1.6-2.3) mg/dL Total Bilirubin 0.8 (0.2-1.3) mg/dL AST 103 H (14-36) U/L ALT 139 H (4-34) U/L Alkaline Phosphatase 90 (38-126) U/L Troponin I <0.012 (0.000-0.034) ng/mL Total Protein 7.8 (6.3-8.2) g/dL Albumin 4.4 (3.5-5.0) g/dL TSH 3.930 (0.465-4.680) mIU/L Urine Color Urine Appearance (Clear) Urine pH (5.0-8.0) Ur Specific [place] (1.001-1.035) Urine Protein (Negative) Urine Glucose (UA) (Negative) Urine Ketones (Negative) Urine Blood (Negative) Urine Nitrite (Negative) Urine Bilirubin (Negative) Urine Urobilinogen (<2.0) mg/dL Ur Leukocyte Esterase (Negative) Urine RBC (0-5) /hpf Urine WBC (0-5) /hpf Ur Squamous Epith Cells (0-4) /hpf Urine Bacteria (None) /hpf Urine Mucus (None) /hpf Urine HCG, Qual (Not Detectd) 05/17/22 05/17/22 Range/Units 20:13 20:13 WBC (3.8-10.6) k/uL RBC (3.80-5.40) m/uL Hgb (11.4-16.0) gm/dL Hct (34.0-46.0) % MCV (80.0-100.0) fL MCH (25.0-35.0) pg MCHC (31.0-37.0) g/dL RDW (11.5-15.5) % Plt Count (150-450) k/uL MPV Neutrophils % % Lymphocytes % % Monocytes % % Eosinophils % % Basophils % % Neutrophils # (1.3-7.7) k/uL Lymphocytes # (1.0-4.8) k/uL Monocytes # (0-1.0) k/uL Eosinophils # (0-0.7) k/uL Basophils # (0-0.2) k/uL PT (9.0-12.0) sec INR (<1.2) APTT (22.0-30.0) sec Sodium (137-145) mmol/L Potassium (3.5-5.1) mmol/L Chloride (98-107) mmol/L Carbon Dioxide (22-30) mmol/L Anion Gap mmol/L BUN (7-17) mg/dL Creatinine (0.52-1.04) mg/dL Est GFR (CKD-EPI)AfAm (>60 ml/min/1.73 sqM) Est GFR (CKD-EPI)NonAf (>60 ml/min/1.73 sqM) Glucose (74-99) mg/dL POC Glucose (mg/dL) (70-110) mg/dL POC Glu Staff Physical Therapy Assistant ID Plasma Lactic Acid Tim (0.7-2.0) mmol/L Calcium (8.4-10.2) mg/dL Magnesium (1.6-2.3) mg/dL Total Bilirubin (0.2-1.3) mg/dL AST (14-36) U/L ALT (4-34) U/L Alkaline Phosphatase (38-126) U/L Troponin I (0.000-0.034) ng/mL Total Protein (6.3-8.2) g/dL Albumin (3.5-5.0) g/dL TSH (0.465-4.680) mIU/L Urine Color Yellow Urine Appearance Cloudy H (Clear) Urine pH 5.0 (5.0-8.0) Ur Specific [place] 1.032 (1.001-1.035) Urine Protein Negative (Negative) Urine Glucose (UA) 4+ H (Negative) Urine Ketones Negative (Negative) Urine Blood Negative (Negative) Urine Nitrite Negative (Negative) Urine Bilirubin Negative (Negative) Urine Urobilinogen <2.0 (<2.0) mg/dL Ur Leukocyte Esterase Large H (Negative) Urine RBC 6 H (0-5) /hpf Urine WBC 22 H (0-5) /hpf Ur Squamous Epith Cells 5 H (0-4) /hpf Urine Bacteria Rare H (None) /hpf Urine Mucus Rare H (None) /hpf Urine HCG, Qual Not Detected (Not Detectd) Disposition <Mily Ferro - Last Filed: 05/17/22 20:48> Is patient prescribed a controlled substance at d/c from ED?: No <Phill Alcala - Last Filed: 05/17/22 22:22> Clinical Impression: Hypertensive urgency, Hyperglycemia Disposition: HOME SELF-CARE Condition: Stable Instructions (If sedation given, give patient instructions): Chronic Hypertension (DC), Diabetes and Exercise (ED) Referrals: Mena Diggs MD [Primary Care Provider] - 05/24/22
[2022-05-17 20:49] LABS: AST 103 U/L (14-36); Magnesium 1.8 mg/dL (1.6-2.3); Potassium 4.7 mmol/L (3.5-5.1)
[2022-05-17] MEDS ORDERED: INSULIN REGULAR 100 UNIT/ML VIAL (IM/SQ) SQ ONE (20:52)
[2022-05-17] MEDS ORDERED: hydrALAZINE HCL 20 MG/ML 1 ML VIAL IVP STA (20:52)
--- NOTE | 2022-05-17 21:21 | XR ---
EXAMINATION TYPE: XR chest 2V DATE OF EXAM: 05/17/2022 8:47 PM COMPARISON: Chest radiographs from 04/03/2018. TECHNIQUE: XR chest 2V Frontal and lateral views of the chest. CLINICAL INDICATION:Female, 27 years old with history of Weakness; FINDINGS: Lungs/Pleura: There is no evidence of pleural effusion, focal consolidation, or pneumothorax. Pulmonary vascularity: Unremarkable. Heart/mediastinum: Cardiomediastinal silhouette is unremarkable. Musculoskeletal: No acute osseous pathology. Other findings: None IMPRESSION: No acute cardiopulmonary disease/process.
[2022-05-17 21:36] VITALS: BP 163/88; PULSE 105; TEMP 98.2
== END 2022-05-17 21:59 | disposition home or self-care (01) ==
LOC: EC 19:38
DX: I16.0 Hypertensive urgency (principal); E11.65 Type 2 diabetes mellitus with hyperglycemia; I10 Essential (primary) hypertension; Z91.018 Allergy to other foods; Z79.84 Long term (current) use of oral hypoglycemic drugs; Z79.899 Other long term (current) drug therapy
CPT/HCPCS: 36415; 71046; 80053; 81001; 81025; 82009; 83605; 83735; 84443; 84484; 85025; 85610; 85730; 93005; 96360; 99284

== ENCOUNTER 2024-05-14 00:12 | Emergency (ER) | payer BC ==
[2024-05-14 00:20] VITALS: RESP 18; TEMP 97.6
[2024-05-14] MEDS: LIDOCAINE 4% PATCH TOPICAL ONE (00:35)
[2024-05-14] MEDS: KETOROLAC 15 MG/ML 1 ML VIAL IM STA (00:36)
[2024-05-14] MEDS: ORPHENADRINE 30 MG/ML 2 ML VIAL IM STA (00:38)
--- NOTE | 2024-05-14 02:18 | XR ---
EXAM: XR Thoracic Spine, 3 Views CLINICAL HISTORY: ITS.REASON XR Reason: pain TECHNIQUE: Frontal, lateral and swimmer's views of the thoracic spine. COMPARISON: No relevant prior studies available. FINDINGS: Vertebrae: Unremarkable. No acute fracture. Normal alignment. Disc spaces: No acute findings. No significant narrowing. Soft tissues: Unremarkable. IMPRESSION: No thoracic spine compression fracture. Evaluation limited due to patient positioning.
--- NOTE | 2024-05-14 02:31 | ED ---
Back Pain HPI - General Chief Complaint: Back Pain/Injury Stated Complaint: Back pain Time Seen by Provider: 05/14/24 00:21 Source: patient - History of Present Illness Initial Comments: 29-year-old female presenting with chief complaint of back pain. Patient is having mid back pain. Started tonight while she was laying in bed. She states that she has had this pain in the past. She denies any injury or trauma. No loss of bowel or bladder control or saddle paresthesia. No radiculopathy. No abdominal pain, nausea, vomiting, fever, chills, dysuria, hematuria. No chest pain or difficulty breathing. No weakness numbness or tingling - Related Data Home Medications Medication Instructions Recorded Confirmed Atorvastatin [Lipitor] 20 mg PO HS 02/02/22 05/17/22 Enalapril Maleate 20 mg PO DAILY 02/02/22 05/17/22 Furosemide [Lasix] 20 mg PO DAILY 02/02/22 05/17/22 Metoprolol Succinate (ER) [Toprol 25 mg PO HS 02/02/22 05/17/22 Xl] Omeprazole 20 mg PO DAILY 02/02/22 05/17/22 Potassium Chloride ER [K-Dur 20] 20 meq PO DAILY 02/02/22 05/17/22 metFORMIN HCL [Glucophage] 1,000 mg PO BID 02/02/22 05/17/22 Previous Rx's Medication Instructions Recorded Cyclobenzaprine [Flexeril] 10 mg PO TID PRN #15 tab 05/14/24 Allergies Allergy/AdvReac Type Severity Reaction Status Date / Time chicken derived [Chicken] Allergy Swelling Verified 05/14/24 00:20 Review of Systems ROS Statement: Those systems with pertinent positive or pertinent negative responses have been documented in the HPI. ROS Other: All systems not noted in ROS Statement are negative. Past Medical History Past Medical History: Diabetes Mellitus, Hypertension History of Any Multi-Drug Resistant Organisms: None Reported Past Surgical History: Orthopedic Surgery Additional Past Surgical History / Comment(s): Left hand tendon surgery Past Anesthesia/Blood Transfusion Reactions: No Reported Reaction Past Psychological History: ADD/ADHD Past Alcohol Use History: None Reported Past Drug Use History: None Reported General Exam Limitations: no limitations General appearance: alert, in no apparent distress Head exam: Present: atraumatic, normocephalic, normal inspection Eye exam: Present: normal appearance, EOMI Neck exam: Present: normal inspection. Absent: meningismus Respiratory exam: Present: normal lung sounds bilaterally. Absent: respiratory distress, wheezes, rales, rhonchi, stridor Cardiovascular Exam: Present: regular rate, normal rhythm, normal heart sounds. Absent: systolic murmur, diastolic murmur, rubs, gallop, clicks Extremities exam: Present: normal inspection Back exam: Present: normal inspection, tenderness Neurological exam: Present: alert, oriented X3 Psychiatric exam: Present: normal affect, normal mood Skin exam: Present: warm, dry Course Vital Signs 05/14/24 00:15 Temperature 97.6 F Pulse Rate 75 Respiratory 18 Rate Blood Pressure 187/125 O2 Sat by Pulse 98 Oximetry Medical Decision Making - Medical Decision Making Was pt. sent in by a medical professional or institution (, PA, CHAIN MAKER MACHINE, urgent care, hospital, or fpc...) When possible be specific @ -No Did you speak to anyone other than the patient for history (EMS, parent, family, police, friend...)? What history was obtained from this source @ -No Did you review nursing and triage notes (agree or disagree)? Why? @ -I reviewed and agree with nursing and triage notes Were old charts reviewed (outside hosp., previous admission, EMS record, old EKG, old radiological studies, urgent care reports/EKG's, fpc records)? Report findings @ -No old charts were reviewed Differential Diagnosis (chest pain, altered mental status, abdominal pain women, abdominal pain men, vaginal bleeding, weakness, fever, dyspnea, syncope, headache, dizziness, GI bleed, back pain, seizure, CVA, palpatations, mental health, musculoskeletal)? @ - MDM Differential Back Pain: Strain, zoster, cauda equina syndrome, epidural abscess, vertebral osteomyelitis, discitis, fracture, subluxation, disc herniation, DJD, spinal stenosis, dissection, AAA, pancreatitis, peptic ulcer disease, pyelonephritis, kidney stone this is not meant to be an all-inclusive list. EKG interpreted by me (3pts min.). @ -As above X-rays interpreted by me (1pt min.). @ -Shows no thoracic spine compression fracture CT interpreted by me (1pt min.). @ -None done U/S interpreted by me (1pt. min.). @ -None done What testing was considered but not performed or refused? (CT, X-rays, U/S, labs)? Why? @ -None What meds were considered but not given or refused? Why? @ -None Did you discuss the management of the patient with other professionals (professionals i.e. , PA, CHAIN MAKER MACHINE, lab, RT, psych nurse, social secretary, heavy equipment technician, teacher, operations officer, patient case manager)? Give summary @ -No Was smoking cessation discussed for >3mins.? @ -No Was critical care preformed (if so, how long)? @ -No Were there social determinants of health that impacted care today? How? (Homelessness, low income, unemployed, alcoholism, drug addiction, transportation, low edu. Level, literacy, decrease access to med. care, correction, rehab)? @ -No Was there de-escalation of care discussed even if they declined (Discuss DNR or withdrawal of care, Hospice)? DNR status @ -No What co-morbidities impacted this encounter? (DM, HTN, Smoking, COPD, CAD, Cancer, CVA, ARF, Chemo, Hep., AIDS, mental health diagnosis, sleep apnea, morbid obesity)? @ -None Was patient admitted / discharged? Hospital course, mention meds given and route, prescriptions, significant lab abnormalities, going to OR and other pertinent info. @ -29-year-old female presenting with chief complaint of mid back pain. No injury or trauma. No red flag symptoms. History and physical examination are conducted. Patient is treated with Toradol, Norflex, and lidocaine patch. X- rays negative for compression fracture. On reassessment patient reports improvement in her symptoms. She is educated on today's findings and supportive management at home. Follow-up with PCP. Report back to ER with any new or worsening symptoms. Discussed return parameters and answered all questions. Patient conveyed verbal understanding and agreed to the plan. I discussed this case in detail with my attending Dr. Chavis Undiagnosed new problem with uncertain prognosis? @ -No Drug Therapy requiring intensive monitoring for toxicity (Heparin, Nitro, Insulin, Cardizem)? @ -No Were any procedures done? @ -No Diagnosis/symptom? @ -Mid back pain Acute, or Chronic, or Acute on Chronic? @ -Acute Uncomplicated (without systemic symptoms) or Complicated (systemic symptoms)? @ -Uncomplicated Side effects of treatment? @ -No Exacerbation, Progression, or Severe Exacerbation? @ -No Poses a threat to life or bodily function? How? (Chest pain, [place], [place], pneumonia, PE, COPD, DKA, ARF, appy, cholecystitis, CVA, Diverticulitis, Homicidal, Suicidal, threat to staff... and all critical care pts) @ -Low likelihood Disposition Clinical Impression: Mid back pain Disposition: HOME SELF-CARE Condition: Good Instructions (If sedation given, give patient instructions): Back Pain (ED) Additional Instructions: Follow-up with your PCP. Report back to ER with any new or worsening symptoms. Take Motrin and Tylenol as needed for pain control. Do not take cyclobenzaprine before driving or operating heavy machinery as it may cause drowsiness Prescriptions: Cyclobenzaprine [Flexeril] 10 mg PO TID PRN #15 tab PRN Reason: Spasms Is patient prescribed a controlled substance at d/c from ED?: No Referrals: Candelaria Menjivar MD [Primary Care Provider] - 1-2 days Time of Disposition: 02:31
[2024-05-14 02:36] VITALS: BP 153/92; PULSE 87
== END 2024-05-14 02:35 | disposition home or self-care (01) ==
LOC: EC 00:12
DX: M54.6 Pain in thoracic spine (principal); Z91.018 Allergy to other foods
CPT/HCPCS: 72072; 99283; 96372 ×2; J2360; J1885

== ENCOUNTER 2024-05-20 03:06 | Inpatient (IN) | payer BC ==
--- NOTE | 2024-05-20 03:55 | ED ---
General Adult HPI - General Source: patient, RN notes reviewed, old records reviewed Mode of arrival: ambulatory Limitations: no limitations <Austin Kinsey - Last Filed: 05/20/24 06:48> <Mike Tong - Last Filed: 05/20/24 07:29> - General Chief complaint: Back Pain/Injury Stated complaint: back pain Time Seen by Provider: 05/20/24 03:15 - History of Present Illness Initial comments: 29-year-old female presents for evaluation of mid upper back pain. Pain is moderate to severe. Patient describes this as a burning sensation. Patient was seen approximately 1 week ago had a mild improvement but this evening the pain significantly worsened. She denies anterior chest pain. Denies cough or fever. History of hypertension. Patient was at rest during symptom onset. Patient is a non-smoker (Austin Kinsey) - Related Data Home Medications Medication Instructions Recorded Confirmed Atorvastatin [Lipitor] 20 mg PO HS 02/02/22 05/17/22 Enalapril Maleate 20 mg PO DAILY 02/02/22 05/17/22 Furosemide [Lasix] 20 mg PO DAILY 02/02/22 05/17/22 Metoprolol Succinate (ER) [Toprol 25 mg PO HS 02/02/22 05/17/22 Xl] Omeprazole 20 mg PO DAILY 02/02/22 05/17/22 Potassium Chloride ER [K-Dur 20] 20 meq PO DAILY 02/02/22 05/17/22 metFORMIN HCL [Glucophage] 1,000 mg PO BID 02/02/22 05/17/22 Previous Rx's Medication Instructions Recorded Cyclobenzaprine [Flexeril] 10 mg PO TID PRN #15 tab 05/14/24 Allergies Allergy/AdvReac Type Severity Reaction Status Date / Time chicken derived [Chicken] Allergy Swelling Verified 05/20/24 03:10 Review of Systems ROS Other: All systems not noted in ROS Statement are negative. <Austin Kinsey - Last Filed: 05/20/24 06:48> ROS Other: All systems not noted in ROS Statement are negative. <Mike Tong - Last Filed: 05/20/24 07:29> ROS Statement: Those systems with pertinent positive or pertinent negative responses have been documented in the HPI. Past Medical History Past Medical History: Diabetes Mellitus, Hypertension History of Any Multi-Drug Resistant Organisms: None Reported Past Surgical History: Orthopedic Surgery Additional Past Surgical History / Comment(s): Left hand tendon surgery Past Anesthesia/Blood Transfusion Reactions: No Reported Reaction Past Psychological History: ADD/ADHD Smoking Status: Never smoker Past Alcohol Use History: None Reported Past Drug Use History: None Reported <Austin Kinsey N - Last Filed: 05/20/24 06:48> General Exam Limitations: no limitations General appearance: alert, in no apparent distress Head exam: Present: atraumatic, normocephalic Eye exam: Present: normal appearance, PERRL ENT exam: Present: normal exam Neck exam: Present: normal inspection. Absent: tenderness, meningismus Respiratory exam: Present: normal lung sounds bilaterally. Absent: respiratory distress, wheezes Cardiovascular Exam: Present: regular rate, normal rhythm GI/Abdominal exam: Present: soft. Absent: distended Extremities exam: Present: normal inspection, normal capillary refill Back exam: Absent: vertebral tenderness Neurological exam: Present: alert, oriented X3, CN II-XII intact. Absent: motor sensory deficit Psychiatric exam: Present: normal affect, normal mood Skin exam: Present: warm. Absent: cyanosis, diaphoretic <Austin Kinsey N - Last Filed: 05/20/24 06:48> Course Vital Signs 05/20/24 05/20/24 05/20/24 03:11 04:13 05:00 Temperature 97.5 F L Pulse Rate 72 80 71 Respiratory 26 H 18 20 Rate Blood Pressure 190/126 141/85 138/73 O2 Sat by Pulse 100 99 97 Oximetry 05/20/24 05/20/24 06:32 07:00 Temperature Pulse Rate 68 65 Respiratory 21 20 Rate Blood Pressure 139/85 117/80 O2 Sat by Pulse 100 99 Oximetry Medical Decision Making - Lab Data Result diagrams: 05/20/24 03:35 05/20/24 03:35 <Austin Kinsey - Last Filed: 05/20/24 06:48> - Lab Data Result diagrams: 05/20/24 03:35 05/20/24 03:35 <Mike Tong - Last Filed: 05/20/24 07:29> - Medical Decision Making Was pt. sent in by a medical professional or institution (Dr., PA, MANUFACTURING MAINTENANCE TECHNICIAN, urgent care, hospital, or retirement...) When possible be specific @ -No Did you speak to anyone other than the patient for history (EMS, parent, family, police, friend...)? What history was obtained from this source @ -No Did you review nursing and triage notes (agree or disagree)? Why? @ -I reviewed and agree with nursing and triage notes Were old charts reviewed (outside hosp., previous admission, EMS record, old EKG, old radiological studies, urgent care reports/EKG's, retirement records)? Report findings @ -No old charts were reviewed Differential Chest Pain: Stable Angina, Unstable Angina, STEMI, NSTEMI Aortic Dissection, Pneumothorax, Musculoskeletal, Esophageal Spasm GERD, Cholecystitis, Pancreatitis, Zoster, this is not meant to be an all-inclusive list. EKG interpreted by me (3pts min.). @Sinus rhythm rate of 61, UT interval 160, QRS duration 97, QTc [address] segment elevation X-rays interpreted by me (1pt min.). @ -None done CT interpreted by me (1pt min.). @ -[CT angiography has been ordered, there is a short segment in the mid thoracic aorta with possible intimal flap concerning for focal dissection this is reviewed with the radiologist. U/S interpreted by me (1pt. min.). @ -None done What testing was considered but not performed or refused? (CT, X-rays, U/S, labs)? Why? @ -None What meds were considered but not given or refused? Why? @ -None Did you discuss the management of the patient with other professionals (professionals i.e. RAFAELA Fitzpatrick, MANUFACTURING MAINTENANCE TECHNICIAN, lab, RT, psych nurse, social work professor, anger control counselor, teacher, booking officer, family caseworker)? Give summary @Discussed with Dr. Ochoa, awaiting image review for recommendations. Was smoking cessation discussed for >3mins.? @ -No Was critical care preformed (if so, how long)? @ -yes. 35 min Were there social determinants of health that impacted care today? How? (Homelessness, low income, unemployed, alcoholism, drug addiction, transportation, low edu. Level, literacy, decrease access to med. care, intermediate, rehab)? @ -No Was there de-escalation of care discussed even if they declined (Discuss DNR or withdrawal of care, Hospice)? DNR status @ -No What co-morbidities impacted this encounter? (DM, HTN, Smoking, COPD, CAD, Cancer, CVA, ARF, Chemo, Hep., AIDS, mental health diagnosis, sleep apnea, morbid obesity)? @Uncontrolled hypertension, non-smoker Was patient admitted / discharged? Hospital course, mention meds given and route, prescriptions, significant lab abnormalities, going to OR and other pertinent info. @29-year-old female with atraumatic thoracic back pain no tenderness on exam. Patient is hypertensive upon arrival. I did perform workup including CBC, CMP, EKG, and CT of the aorta. CT of the aorta is concerning for a focal dissection in the mid thoracic aorta, uncertain if this is related to artifact versus true dissection. Patient's vital signs had significantly improved with pain control, and she was given a dose of labetalol to further reduce blood pressure and heart rate. Undiagnosed new problem with uncertain prognosis? @ -No Drug Therapy requiring intensive monitoring for toxicity (Heparin, Nitro, Insulin, Cardizem)? @ -No Were any procedures done? @ -No Diagnosis/symptom? @ -Default Acute, or Chronic, or Acute on Chronic? @ -Default Uncomplicated (without systemic symptoms) or Complicated (systemic symptoms)? @ -Default Side effects of treatment? @ -No Exacerbation, Progression, or Severe Exacerbation? @ -No Poses a threat to life or bodily function? How? (Chest pain, [place], [place], pneumonia, PE, COPD, DKA, ARF, appy, cholecystitis, CVA, Diverticulitis, Homicidal, Suic idal, threat to staff... and all critical care pts) @ -No (Austin Kinsey) Case discussed with vascular surgery patient care signed out to me pending vascular surgery recommendations. Plan at signout was to follow-up with recommendations by Dr. Ochoa. Briefly, patient is 29-year-old female presents to the emergency department for thoracic back pain. She did have a CT angiography which showed possible dissection. Of note, there does appear to be a linear density and the aorta however only in 1 axial view without any associated aortic dilatation raising suspicion of possible artifact. Nonetheless patient has acute onset thoracic back pain with initial hype rtension. Vascular surgery reviewed patient's case and called recommended hospital admission for blood pressure control and further testing. Case discussed with wellness assistant for ICU admission. Case discussed with [facility] for hospital admission. Labetalol infusion ordered for medical management. Critical care time 33 minutes Diagnosis/symptom? @ -Acute aortic dissection Acute, or Chronic, or Acute on Chronic? @ -Acute Uncomplicated (without systemic symptoms) or Complicated (systemic symptoms)? @ -Default Side effects of treatment? @ -Yes Exacerbation, Progression, or Severe Exacerbation] @ -No Poses a threat to life or bodily function? @ -Yes (Mike Tong) - Lab Data Lab Results 05/20/24 05/20/24 05/20/24 Range/Units 03:35 03:35 03:35 WBC 9.6 (3.8-10.6) k/uL RBC 5.06 (3.80-5.40) m/uL Hgb 14.0 (11.4-16.0) gm/dL Hct 43.2 (34.0-46.0) % MCV 85.4 (80.0-100.0) fL MCH 27.8 (25.0-35.0) pg MCHC 32.5 (31.0-37.0) g/dL RDW 14.2 (11.5-15.5) % Plt Count 466 H (150-450) k/uL MPV 6.6 Neutrophils % 57 % Lymphocytes % 31 % Monocytes % 7 % Eosinophils % 1 % Basophils % 1 % Neutrophils # 5.5 (1.3-7.7) k/uL Lymphocytes # 3.0 (1.0-4.8) k/uL Monocytes # 0.7 (0-1.0) k/uL Eosinophils # 0.1 (0-0.7) k/uL Basophils # 0.0 (0-0.2) k/uL PT 10.0 (10.0-12.5) sec INR 0.9 (<1.2) APTT 25.4 (22.0-30.0) sec Sodium 139 (137-145) mmol/L Potassium 3.7 (3.5-5.1) mmol/L Chloride 103 (98-107) mmol/L Carbon Dioxide 24 (22-30) mmol/L Anion Gap 12 mmol/L BUN 14 (7-17) mg/dL Creatinine 0.75 (0.52-1.04) mg/dL Est GFR (CKD-EPI)AfAm >90 (>60 ml/min/1.73 sqM) Est GFR (CKD-EPI)NonAf >90 (>60 ml/min/1.73 sqM) Glucose 147 H (74-99) mg/dL Calcium 9.9 (8.4-10.2) mg/dL Magnesium 2.1 (1.6-2.3) mg/dL Total Bilirubin 0.7 (0.2-1.3) mg/dL AST 39 H (14-36) U/L ALT 120 H (4-34) U/L Alkaline Phosphatase 86 (38-126) U/L Troponin I (0.000-0.034) ng/mL Total Protein 7.3 (6.3-8.2) g/dL Albumin 4.2 (3.5-5.0) g/dL HCG, Quant mIU/mL 05/20/24 05/20/24 Range/Units 03:35 03:35 WBC (3.8-10.6) k/uL RBC (3.80-5.40) m/uL Hgb (11.4-16.0) gm/dL Hct (34.0-46.0) % MCV (80.0-100.0) fL MCH (25.0-35.0) pg MCHC (31.0-37.0) g/dL RDW (11.5-15.5) % Plt Count (150-450) k/uL MPV Neutrophils % % Lymphocytes % % Monocytes % % Eosinophils % % Basophils % % Neutrophils # (1.3-7.7) k/uL Lymphocytes # (1.0-4.8) k/uL Monocytes # (0-1.0) k/uL Eosinophils # (0-0.7) k/uL Basophils # (0-0.2) k/uL PT (10.0-12.5) sec INR (<1.2) APTT (22.0-30.0) sec Sodium (137-145) mmol/L Potassium (3.5-5.1) mmol/L Chloride (98-107) mmol/L Carbon Dioxide (22-30) mmol/L Anion Gap mmol/L BUN (7-17) mg/dL Creatinine (0.52-1.04) mg/dL Est GFR (CKD-EPI)AfAm (>60 ml/min/1.73 sqM) Est GFR (CKD-EPI)NonAf (>60 ml/min/1.73 sqM) Glucose (74-99) mg/dL Calcium (8.4-10.2) mg/dL Magnesium (1.6-2.3) mg/dL Total Bilirubin (0.2-1.3) mg/dL AST (14-36) U/L ALT (4-34) U/L Alkaline Phosphatase (38-126) U/L Troponin I <0.012 (0.000-0.034) ng/mL Total Protein (6.3-8.2) g/dL Albumin (3.5-5.0) g/dL HCG, Quant <2.4 mIU/mL Critical Care Time Critical Care Time: Yes Total Critical Care Time: 35 <Austin Kinsey - Last Filed: 05/20/24 06:48> Disposition <Austin Kinsey - Last Filed: 05/20/24 06:48> Decision Time: 07:28 <Mike Tong - Last Filed: 05/20/24 07:29> Clinical Impression: Aortic dissection Disposition: ADMITTED IP TO THIS [facility] Condition: Critical Referrals: Candelaria Menjivar MD [Primary Care Provider] - 1-2 days
[2024-05-20 04:11] LABS: Basophils % (A) 1 %; Eosinophils # (A) 0.1 k/uL (0-0.7); Eosinophils % (A) 1 %; HCT 43.2 % (34.0-46.0); Lymphocytes % (A) 31 %; MCH 27.8 pg (25.0-35.0); MCHC 32.5 g/dL (31.0-37.0); MCV 85.4 fL (80.0-100.0); Mean Platelet Volume 6.6; Monocytes # (A) 0.7 k/uL (0-1.0); Monocytes % (A) 7 %; Neutrophils # (A) 5.5 k/uL (1.3-7.7); Neutrophils % (A) 57 %; Platelet Count 466 k/uL (150-450); RBC 5.06 m/uL (3.80-5.40); RDW 14.2 % (11.5-15.5); WBC 9.6 k/uL (3.8-10.6)
[2024-05-20] MEDS: HYDROmorphone 1 MG/ML 1 ML SYRINGE IVP STA (04:11)
[2024-05-20 04:26] LABS: ALT 120 U/L (4-34); AST 39 U/L (14-36); African American GFR (CKD) >90 (>60 ml/min/1.73 sqM); Albumin 4.2 g/dL (3.5-5.0); Alkaline Phosphatase 86 U/L (38-126); Anion Gap 12 mmol/L; Blood Urea Nitrogen 14 mg/dL (7-17); Calcium 9.9 mg/dL (8.4-10.2); Carbon Dioxide 24 mmol/L (22-30); Chloride 103 mmol/L (98-107); Glucose 147 mg/dL (74-99); INR 0.9 (<1.2); Magnesium 2.1 mg/dL (1.6-2.3); Non-African American GFR(CKD) >90 (>60 ml/min/1.73 sqM); Potassium 3.7 mmol/L (3.5-5.1); Sodium 139 mmol/L (137-145); Total Bilirubin 0.7 mg/dL (0.2-1.3); Total Protein 7.3 g/dL (6.3-8.2)
[2024-05-20 04:27] LABS: Partial Thromboplastin Time 25.4 sec (22.0-30.0)
--- NOTE | 2024-05-20 06:04 | CT ---
EXAM: CT Angiography Chest With Intravenous Contrast CLINICAL HISTORY: ITS.REASON CT Reason: severe mid back pain/HTN TECHNIQUE: Axial computed tomographic angiography images of the chest with intravenous contrast. CTDI is 54.13 mGy and DLP is 1492.75 mGy-cm. This CT exam was performed using one or more of the following dose reduction techniques: automated exposure control, adjustment of the mA and/or kV according to patient size, and/or use of iterative reconstruction technique. MIP reconstructed images were created and reviewed. COMPARISON: No relevant prior studies available. FINDINGS: Pulmonary arteries: Unremarkable. No pulmonary embolism. Aorta: Linear density is visualized through the distal descending thoracic aorta seen on series-1 image 76. No thoracic aortic aneurysm. Lungs: Unremarkable. No mass. No consolidation. Pleural space: Unremarkable. No significant effusion. No pneumothorax. Heart: Moderate enlargement of the heart. No significant pericardial effusion. No evidence of RV dysfunction. Bones/joints: No acute fracture. No dislocation. Soft tissues: Unremarkable. Lymph nodes: Unremarkable. No enlarged lymph nodes. 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 EXAM: CT Angiography Abdomen and Pelvis With Intravenous Contrast CLINICAL HISTORY: ITS.REASON CT Reason: severe mid back pain/HTN TECHNIQUE: Axial computed tomographic angiography images of the abdomen and pelvis with intravenous contrast. CTDI is 54.13 mGy and DLP is 1492.75 mGy-cm. This CT exam was performed using one or more of the following dose reduction techniques: automated exposure control, adjustment of the mA and/or kV according to patient size, and/or use of iterative reconstruction technique. MIP reconstructed images were created and reviewed. COMPARISON: No relevant prior studies available. FINDINGS: VASCULATURE: Aorta: No acute findings. No abdominal aortic aneurysm. No dissection. Celiac trunk and mesenteric arteries: No acute findings. No occlusion or significant stenosis. Renal arteries: No acute findings. No occlusion or significant stenosis. Iliac arteries: No acute findings. No occlusion or significant stenosis. Lung bases: Unremarkable. No mass. No consolidation. ABDOMEN: Liver: Hepatomegaly and hepatic steatosis. Gallbladder and bile ducts: Unremarkable. No calcified stones. No ductal dilation. Pancreas: Unremarkable. No ductal dilation. No mass. Spleen: Unremarkable. No splenomegaly. Adrenals: Unremarkable. No mass. Kidneys and ureters: Unremarkable. No hydronephrosis. No solid mass. Stomach and bowel: Unremarkable. No obstruction. No mucosal thickening. PELVIS: Appendix: No findings to suggest acute appendicitis. Bladder: Unremarkable. No mass. Reproductive: Unremarkable as visualized. ABDOMEN and PELVIS: Intraperitoneal space: Unremarkable. No significant fluid collection. No free air. Bones/joints: Degenerative changes are seen in the spine and hips. Bilateral pars defects seen at L5 with grade 1 anterior listhesis of L5 on S1. No acute fracture. No dislocation. Soft tissues: Unremarkable. Lymph nodes: Unremarkable. No enlarged lymph nodes. IMPRESSION: No acute intra-abdominal or pelvic findings. <MYCVCSECTION> Communications: 05/20/24 06:12 Call Doctor Regarding Aortic Dissection, called Dr. Kinsey on 05/20 06:12 (-05:00)
[2024-05-20] MEDS ORDERED: niCARdipine 20 MG in SODIUM CHLORIDE 0.9% 192 ML IV SCH (06:45)
[2024-05-20] MEDS: LABETALOL 5 MG/ML VIAL MDV IVP STA (06:50)
[2024-05-20] MEDS: SODIUM CHLORIDE 0.9% 1,000 ML IV SCH (06:58)
[2024-05-20] MEDS ORDERED: NALOXONE 0.4 MG/ML 1 ML VIAL IV PRN (07:34)
[2024-05-20] MEDS: LABETALOL 200 MG in SODIUM CHLORIDE 0.9% 160 ML IV SCH (08:08)
[2024-05-20] MEDS ORDERED: DEXTROSE 50% SYRINGE 50 ML IVP PRN ×2 (08:36)
[2024-05-20 09:04] LABS: Glucose,Whole Blood 157 mg/dL (70-110)
[2024-05-20] MEDS: LISINOPRIL-HCTZ 10-12.5 MG 1 EACH TAB PO SCH (11:07)
--- NOTE | 2024-05-20 11:33 | P.GSCN ---
History of Present Illness Consult date: 05/20/24 Reason for Consult: Descending aortic dissection Requesting physician: Ramiro Madrigal History of present illness: This a pleasant 29-year-old female who had presented to the emergency department with onset of mid to upper back pain that she reported came on quickly and lasted a few hours but has resolved at this time. Past medical history includes morbid obesity, hypertension and type 2 diabetes mellitus. On admission she was noted to be hypertensive and was admitted for hypertensive urgency. As part of her workup she had a CTA of the chest abdomen and pelvis that reported dissection of the distal descending thoracic aorta with no acute intra-abdominal or pelvic findings. Vascular surgery was consulted for descending thoracic aorta dissection. Patient currently is in the ICU for blood pressure management and is on a labetalol drip. She is denying any abdominal pain, back pain, chest pain, or shortness of breath. On admission recorded blood pressure of 190/126, now 130/65, heart rate 62, respiratory rate 22 oxygen saturation 98% on room air. Patient denies any history of abdominal aortic aneurysm or known dissection. Review of Systems A 14 point review systems was completed all pertinent positives and negatives as stated in the HPI. Past Medical History Past Medical History: Diabetes Mellitus, Hypertension History of Any Multi-Drug Resistant Organisms: None Reported Past Surgical History: Orthopedic Surgery Additional Past Surgical History / Comment(s): Left hand tendon surgery Past Anesthesia/Blood Transfusion Reactions: No Reported Reaction Past Psychological History: ADD/ADHD Smoking Status: Never smoker Past Alcohol Use History: None Reported Past Drug Use History: None Reported Medications and Allergies Home Medications Medication Instructions Recorded Confirmed Type Furosemide [Lasix] 20 mg PO DAILY 02/02/22 05/20/24 History Omeprazole 20 mg PO DAILY 02/02/22 05/20/24 History Potassium Chloride ER [K-Dur 20] 20 meq PO DAILY 02/02/22 05/20/24 History Cyclobenzaprine [Flexeril] 10 mg PO TID PRN #15 tab 05/14/24 05/20/24 Rx Lisinopril-Hctz 10-12.5 mg 1 tab PO DAILY 05/20/24 05/20/24 History [Zestoretic 10-12.5] Naproxen [Naprosyn] 500 mg PO DAILY 05/20/24 05/20/24 History Allergies Allergy/AdvReac Type Severity Reaction Status Date / Time chicken derived [Chicken] Allergy Swelling Verified 05/20/24 08:01 Surgical - Exam Vital Signs Temp Pulse Resp BP Pulse Ox 97.5 F L 72 26 H 190/126 100 05/20/24 03:11 05/20/24 03:11 05/20/24 03:11 05/20/24 03:11 05/20/24 03:11 General appearance: The patient is alert, oriented, appears in no acute distress. Morbidly obese. HET: Head is normocephalic and atraumatic. Pupils are equal and reactive. Neck: Supple. Heart: Regular. Lungs: Equal expansion, normal respiratory effort. Abdomen: Soft, nontender, nondistended. Extremities: Normal skin color and turgor. Palpable radial and DP pulses. Neurological: No focal deficits. Strength and sensation are grossly intact. Results - Labs 05/20/24 03:35 05/20/24 03:35 Abnormal Lab Results - Last 24 Hours (Table) 05/20/24 05/20/24 Range/Units 03:35 03:35 Plt Count 466 H (150-450) k/uL Glucose 147 H (74-99) mg/dL AST 39 H (14-36) U/L ALT 120 H (4-34) U/L Diabetes panel 05/20/24 Range/Units 03:35 Sodium 139 (137-145) mmol/L Potassium 3.7 (3.5-5.1) mmol/L Chloride 103 (98-107) mmol/L Carbon Dioxide 24 (22-30) mmol/L BUN 14 (7-17) mg/dL Creatinine 0.75 (0.52-1.04) mg/dL Glucose 147 H (74-99) mg/dL Calcium 9.9 (8.4-10.2) mg/dL AST 39 H (14-36) U/L ALT 120 H (4-34) U/L Alkaline Phosphatase 86 (38-126) U/L Total Protein 7.3 (6.3-8.2) g/dL Albumin 4.2 (3.5-5.0) g/dL Calcium panel 05/20/24 Range/Units 03:35 Calcium 9.9 (8.4-10.2) mg/dL Albumin 4.2 (3.5-5.0) g/dL Pituitary panel 05/20/24 Range/Units 03:35 Sodium 139 (137-145) mmol/L Potassium 3.7 (3.5-5.1) mmol/L Chloride 103 (98-107) mmol/L Carbon Dioxide 24 (22-30) mmol/L BUN 14 (7-17) mg/dL Creatinine 0.75 (0.52-1.04) mg/dL Glucose 147 H (74-99) mg/dL Calcium 9.9 (8.4-10.2) mg/dL Adrenal panel 05/20/24 Range/Units 03:35 Sodium 139 (137-145) mmol/L Potassium 3.7 (3.5-5.1) mmol/L Chloride 103 (98-107) mmol/L Carbon Dioxide 24 (22-30) mmol/L BUN 14 (7-17) mg/dL Creatinine 0.75 (0.52-1.04) mg/dL Glucose 147 H (74-99) mg/dL Calcium 9.9 (8.4-10.2) mg/dL Total Bilirubin 0.7 (0.2-1.3) mg/dL AST 39 H (14-36) U/L ALT 120 H (4-34) U/L Alkaline Phosphatase 86 (38-126) U/L Total Protein 7.3 (6.3-8.2) g/dL Albumin 4.2 (3.5-5.0) g/dL - Imaging Comments: CT angiogram abdomen pelvis aorta with reported distal descending thoracic aorta CTA independently reviewed and difficult to discern if there is dissection and does not appear to be flow-limiting. Only seen in 1 focal area in one view. Abdominal aorta diminutive in size, likely chronic. Assessment and Plan Assessment: 1. Possible asymptomatic distal descending thoracic dissection 2. Hypertensive urgency 3. Chronic hypertension 4. Type 2 diabetes mellitus 5. Morbid obesity Plan: CTA independently reviewed and difficult to discern if there is an actual distal descending thoracic dissection and does not appear to be flow-limiting. Only seen in one focal area on one view, symptoms likely not secondary to dissection. Abdominal aorta diminutive in size likely chronic. There is no indication for any vascular surgical intervention. Maintain optimal blood pressures. Recommend weight loss and strict glycemic control. Recommend outpatient follow-up with vascular surgery for repeat imaging/follow-up which was discussed with the patient. Rest of medical management per primary medical team and ICU mesh worker. Thank you for this consultation. The impression and plan of care has been dictated as directed. Dr. Ochoa I performed a history and examination of this patient, discussed the same with the dictator. I agree with the dictator's note ,documented as a scribe. Any additional findings or plans will be noted.
[2024-05-20 12:41] LABS: Glucose,Whole Blood 147 mg/dL (70-110)
[2024-05-20] MEDS: INSULIN ASPART (NovoLOG) 100 UNIT/ML VIAL SQ SCH (12:50)
[2024-05-20 13:03] LABS: Appearance,Urine Clear (Clear); Bilirubin,Urine Negative (Negative); Blood,Urine Negative (Negative); Color,Urine Yellow; Glucose,Urine (UA) Negative (Negative); Ketones,Urine Negative (Negative); Leukocyte Esterase,Urine Moderate (Negative); Mucus,Urine Rare /hpf; Nitrite,Urine Negative (Negative); Protein,Urine Trace (Negative); RBC,Urine 1 /hpf (0-5); Squamous Epithelial Cell,Urine 6 /hpf (0-4); Urobilinogen,Urine <2.0 mg/dL (<2.0); WBC,Urine 5 /hpf (0-5)
[2024-05-20 13:05] LABS: Specific Gravity,Urine >1.050 (1.001-1.035)
--- NOTE | 2024-05-20 13:33 | P.CNPUL ---
History of Present Illness Consult date: 05/20/24 Chief complaint: Upper mid thoracic back pain History of present illness: 29-year-old female patient, morbidly obese, presented to the ED having pain in the mid and upper back area not related to breathing. The patient experienced this pain when she was watching television. No radiation to the anterior chest. No relationship to breathing. No cough or sputum production. No sweating. No diaphoresis. She is currently free of any chest pain. She came into the emergency department and patient was found to be hypertensive with an initial blood pressure 190/126. The patient was given IV labetalol 10 mg IV push with subsequent adequate control of the blood pressure and the patient was started on labetalol drip at 2 mg an hour. Currently, she is free of any chest pain. She is on room air oxygen. Pulse ox is ranging between 91 to 96%. Cardiac rhythm is sinus. She is hemodynamically stable. Labs are all within normal limits. N ormal troponins. Normal renal function. Normal creatinine. The hemoglobin is at 14 with a white cell count 9.6 and a platelet count of 466. Normal coagulation profile. LFTs are mildly elevated with an AST of 39 and ALT of 120 with a normal alkaline phosphatase of 86. CT angiogram of the thoracic aorta was done and there is questionable dissection of the descending distal thoracic aorta. No evidence of any thoracic aortic aneurysm. The patient is producing adequate amount of urine output. The patient has adequate pulses in all 4 extremities. Based on all this, the patient was admitted to the intensive care unit and a vascular surgical consultation was obtained. The patient is known to have hypertension, diabetes mellitus type 2 and the patient is morbidly obese. No documented history of obstructive sleep apnea. Review of Systems Constitutional: Reports as per HPI Eyes: denies as per HPI, denies blurred vision, denies bulging eye, denies decreased vision, denies diplopia, denies discharge, denies dry eye, denies irritation, denies itching, denies pain, denies photophobia, denies loss of peripheral vision, denies loss of vision, denies tunnel vision/blind spots Ears: deny: decreased hearing, ear discharge, earache, tinnitus Ears, nose, mouth and throat: Reports as per HPI Breasts: absent: as per HPI, change in shape, gynecomastia, masses, nipple discharge, pain, skin changes, swelling Cardiovascular: Reports as per HPI, Reports chest pain Respiratory: Reports as per HPI Gastrointestinal: Reports as per HPI Genitourinary: Reports as per HPI Menstruation: Reports as per HPI Musculoskeletal: Reports as per HPI Musculoskeletal: absent: ankle pain, ankle stiffness, ankle swelling, as per HPI, elbow pain, elbow stiffness, elbow swelling, foot pain, foot stiffness, foot swelling, hand pain, hand stiffness, hand swelling, hip pain, hip stiffness, hip swelling, knee pain, knee stiffness, knee swelling, shoulder pain, shoulder stiffness, shoulder swelling, wrist pain, wrist stiffness, wrist swelling Integumentary: Reports as per HPI Neurological: Reports as per HPI Psychiatric: Reports as per HPI Endocrine: Reports as per HPI Hematologic/Lymphatic: Reports as per HPI Allergic/Immunologic: Reports as per HPI Past Medical History Past Medical History: Diabetes Mellitus, Hypertension Additional Past Medical History / Comment(s): obesity History of Any Multi-Drug Resistant Organisms: None Reported Past Surgical History: Orthopedic Surgery Additional Past Surgical History / Comment(s): Left hand tendon surgery Past Anesthesia/Blood Transfusion Reactions: No Reported Reaction Past Psychological History: ADD/ADHD Smoking Status: Never smoker Past Alcohol Use History: None Reported Past Drug Use History: None Reported - Past Family History Father Family Medical History: Hypertension Mother Family Medical History: Diabetes Mellitus Medications and Allergies Home Medications Medication Instructions Recorded Confirmed Type Furosemide [Lasix] 20 mg PO DAILY 02/02/22 05/20/24 History Omeprazole 20 mg PO DAILY 02/02/22 05/20/24 History Potassium Chloride ER [K-Dur 20] 20 meq PO DAILY 02/02/22 05/20/24 History Cyclobenzaprine [Flexeril] 10 mg PO TID PRN #15 tab 05/14/24 05/20/24 Rx Lisinopril-Hctz 10-12.5 mg 1 tab PO DAILY 05/20/24 05/20/24 History [Zestoretic 10-12.5] Naproxen [Naprosyn] 500 mg PO DAILY 05/20/24 05/20/24 History Allergies Allergy/AdvReac Type Severity Reaction Status Date / Time chicken derived [Chicken] Allergy Swelling Verified 05/20/24 08:01 Physical Exam Vitals: Vital Signs Temp Pulse Resp BP Pulse Ox 05/20/24 09:30 65 26 H 97 05/20/24 09:20 16 130/65 98 05/20/24 09:10 97.4 F L 62 27 H 98 05/20/24 09:02 97.4 F L 68 18 140/74 99 05/20/24 08:51 97.9 F 67 16 115/60 98 05/20/24 08:30 65 14 115/59 98 05/20/24 08:13 64 14 120/64 98 05/20/24 07:41 97.7 F 62 14 114/68 99 05/20/24 07:00 65 20 117/80 99 05/20/24 06:32 68 21 139/85 100 05/20/24 05:00 71 20 138/73 97 05/20/24 04:13 80 18 141/85 99 05/20/24 03:11 97.5 F L 72 26 H 190/126 100 Intake and Output 05/19/24 05/20/24 05/20/24 22:59 06:59 14:59 Intake Total 75 Balance 75 Intake: Intake, IV Titration 75 Amount Sodium Chloride 0.9% 1, 75 000 ml @ 75 mls/hr IV . [id number] [facility] Rx#:[id number] Other: Weight 157.85 kg Morbidly obese with a BMI of 61.6, the patient is currently on room air oxygen The patient appeared well nourished and normally developed. Vital signs as documented. Head exam is unremarkable. No scleral icterus or corneal arcus noted. Neck is without jugular venous distension, thyromegaly, or carotid bruits. Carotid upstrokes are brisk bilaterally. Lungs are clear to auscultation and percussion. Cardiac exam reveals the PMI to be normally sized and situated. Rhythm is regular. First and second heart sounds normal. No murmurs, rubs or gallops. Abdominal exam reveals normal bowel sounds, no masses, no organomegaly and no aortic enlargement. Extremities are nonedematous and both femoral and pedal pulses are normal. Examination of the skin revealed no evidence of significant rashes, suspicious appearing nevi or other concerning lesions. Neurologically, the patient is awake and alert and the patient does not have any focal neurological deficit. Cranial nerves are essentially intact. Results - Laboratory Findings CBC and BMP: 05/20/24 03:35 05/20/24 03:35 PT/INR, D-dimer PT 10.0 sec (10.0-12.5) 05/20/24 03:35 INR 0.9 (<1.2) 05/20/24 03:35 Abnormal lab findings: Abnormal Labs 05/20/24 05/20/24 05/20/24 03:35 03:35 09:02 Plt Count 466 H Glucose 147 H POC Glucose (mg/dL) 157 H AST 39 H ALT 120 H Assessment and Plan Plan: Mid thoracic posterior back pain, recovered. Patient presented with hypertensive urgency, given labetalol in the emergency department and the patient is currently on labetalol drip at 2 mg an hour. Patient is currently free of any chest pain and the BP is under good control. CT of the thoracic aorta shows questionable asymptomatic distal descending thoracic dissection versus an artifact. Vascular surgery is on the case. Adequate pulse in all 4 extremities Hypertensive urgency, improved and the patient's blood pressure normalized Hypertension Diabetes mellitus type 2 Morbid obesity with a BMI of 61.6 Plan Will monitor the blood pressure in the intensive care unit Discontinue the labetalol drip and resume lisinopril hydrochlorothiazide at a dose of 10/12.51 tablet a day and use hydralazine 10 mg IV push every 4 hours for systolic blood pressure above 140 Vascular surgical consultation is to be obtained Consider repeating the CT angiogram of the thoracic aorta Monitor blood sugars and utilize sliding scale insulin coverage if needed Provide diet Outpatient PSG with high suspicion for obstructive sleep apnea Echocardiogram Will continue to follow
--- NOTE | 2024-05-20 14:50 | P.HPIM ---
History of Present Illness H&P Date: 05/20/24 Patient is a 29-year-old female with medical history of morbid obesity BMI 60, GERD, hyperlipidemia, hypertension, type II DM not on insulin, osteoarthritis, FROILAN, recent ER visit on 05/14/2024 for mid back pain, treated with Toradol, Norflex, lidocaine patch, had negative x-ray, with some improvement and was discharged home from the ER. Came back on 05/20 with moderate to severe mid/upper back pain that started at rest, there is no associated chest pain or shortness of breath. No neurological deficits. CT of the aorta was concerning for focal dissection in the mid thoracic aorta versus artifact. ER discussed with vascular surgery Dr. Ochoa, recommended hospital admission, blood pressure control, patient was discussed with cnc specialist for ICU admission, started on labetalol infusion. . Initial BP was 190/126, she was afebrile, heart rate in 70s, satting well on room air. CBC unremarkable including stable hemoglobin of 14.0, platelets elevated 466, CMP with normal potassium, sodium, BUN, creatinine, bicarb, glucose elevated 147, AST and ALT elevated 39 and 120 accordingly, previously had elevation as well. Troponin is negative. Pertinent positives and negatives as discussed in HPI, a complete review of systems was performed and all other systems are negative. Patient seen and examined at bedside. Patient's father present during exam. She states that her pain is pretty much gone now she otherwise feels comfortable, denied blurred vision double vision, dizziness, lightheadedness, did have episode of headache with some nausea on admission, pounding, also gone now. No focal weakness, tingling, numbness. Vital signs reviewed General: nontoxic, no distress, appears at stated age, morbidly obese Derm: warm, dry Head: atraumatic, normocephalic, symmetric Eyes: EOMI, no lid lag, anicteric sclera, pupils equal round reactive to light ENT: Nose and ears atraumatic Neck: No thyromegaly, supple Mouth: no lip lesion, mucus membranes moist Cardiovascular: S1S2 reg, no murmur, no edema Lungs: clear to auscultation bilateral, no rhonchi, no rales, no wheeze, no accessory muscle use Abdominal: soft, nontender to palpation, no guarding, no appreciable organom egaly Ext: no gross muscle atrophy, muscle strength muscle strength 5 out of 5 in all 4 extremities, no contractures Musculoskeletal: Thoracic back tenderness Neuro: CN II-XII grossly intact Psych: Alert, oriented, appropriate affect Assessment/Plan: Acute thoracic back pain Concern for focal dissection of the mid thoracic aorta Hypertension Hyperlipidemia -Continue labetalol, aim for systolic blood pressure less than 120 mm Hg -Pain control -Vascular surgery following, cnc specialist following -ADD-RS 1 -N.p.o. -On home lisinopril hydrochlorothiazide 10.5, Lasix 20 daily, potassium 20 mEq daily GERD, on home omeprazole 20 daily Morbid obesity: on ozempic Type II DM not on insulin: Continue with SSI The patient is admitted with an anticipated [greater] than 2 midnight stay as [inpatient/observation] status for evaluation of thoracic back pain, concern for thoracic aorta dissection. possible FROILAN: discussed need of follow up with pulmonology CODE STATUSfull code DVT prophylaxis: SCD Anticipated discharge date: TBD Anticipated discharge place: Home total of 40 minutes was spent on the care of this complex patient more than 50% of the time was spent in counseling and care coordination.. Past Medical History Past Medical History: Diabetes Mellitus, Hypertension History of Any Multi-Drug Resistant Organisms: None Reported Past Surgical History: Orthopedic Surgery Additional Past Surgical History / Comment(s): Left hand tendon surgery Past Anesthesia/Blood Transfusion Reactions: No Reported Reaction Past Psychological History: ADD/ADHD Smoking Status: Never smoker Past Alcohol Use History: None Reported Past Drug Use History: None Reported - Past Family History Father Family Medical History: Hypertension Mother Family Medical History: Diabetes Mellitus Medications and Allergies Home Medications Medication Instructions Recorded Confirmed Type Furosemide [Lasix] 20 mg PO DAILY 02/02/22 05/20/24 History Omeprazole 20 mg PO DAILY 02/02/22 05/20/24 History Potassium Chloride ER [K-Dur 20] 20 meq PO DAILY 02/02/22 05/20/24 History Cyclobenzaprine [Flexeril] 10 mg PO TID PRN #15 tab 05/14/24 05/20/24 Rx Lisinopril-Hctz 10-12.5 mg 1 tab PO DAILY 05/20/24 05/20/24 History [Zestoretic 10-12.5] Naproxen [Naprosyn] 500 mg PO DAILY 05/20/24 05/20/24 History Allergies Allergy/AdvReac Type Severity Reaction Status Date / Time chicken derived [Chicken] Allergy Swelling Verified 05/20/24 08:01 Physical Exam Vitals: Vital Signs Temp Pulse Resp BP Pulse Ox 05/20/24 08:13 64 14 120/64 98 05/20/24 07:41 97.7 F 62 14 114/68 99 05/20/24 07:00 65 20 117/80 99 05/20/24 06:32 68 21 139/85 100 05/20/24 05:00 71 20 138/73 97 05/20/24 04:13 80 18 141/85 99 05/20/24 03:11 97.5 F L 72 26 H 190/126 100 Intake and Output 05/19/24 05/20/24 05/20/24 22:59 06:59 14:59 Other: Weight 157.85 kg Results CBC & Chem 7: 05/20/24 03:35 05/20/24 03:35 Labs: Abnormal Lab Results - Last 24 Hours (Table) 05/20/24 05/20/24 Range/Units 03:35 03:35 Plt Count 466 H (150-450) k/uL Glucose 147 H (74-99) mg/dL AST 39 H (14-36) U/L ALT 120 H (4-34) U/L
[2024-05-20 17:47] LABS: Glucose,Whole Blood 96 mg/dL (70-110)
[2024-05-20] MEDS: hydrALAZINE HCL 20 MG/ML 1 ML VIAL IVP PRN (21:36)
[2024-05-21 00:35] LABS: Glucose,Whole Blood 96 mg/dL (70-110)
[2024-05-21 05:54] LABS: Glucose,Whole Blood 95 mg/dL (70-110)
[2024-05-21 05:59] LABS: HCT 38.9 % (34.0-46.0); HGB 12.7 gm/dL (11.4-16.0); MCH 27.7 pg (25.0-35.0); MCHC 32.5 g/dL (31.0-37.0); MCV 85.3 fL (80.0-100.0); Platelet Count 378 k/uL (150-450); RBC 4.56 m/uL (3.80-5.40); RDW 14.7 % (11.5-15.5); WBC 8.2 k/uL (3.8-10.6)
[2024-05-21 06:15] LABS: African American GFR (CKD) >90 (>60 ml/min/1.73 sqM); Anion Gap 9 mmol/L; Blood Urea Nitrogen 12 mg/dL (7-17); Calcium 9.2 mg/dL (8.4-10.2); Carbon Dioxide 25 mmol/L (22-30); Chloride 104 mmol/L (98-107); Glucose 97 mg/dL (74-99); Non-African American GFR(CKD) >90 (>60 ml/min/1.73 sqM); Potassium 3.3 mmol/L (3.5-5.1); Sodium 138 mmol/L (137-145)
[2024-05-21] MEDS: POTASSIUM CHLORIDE ER 20 MEQ TAB.ER PO SCH (06:48)
--- NOTE | 2024-05-21 08:03 | P.PN ---
Subjective Progress Note Date: 05/21/24 Principal diagnosis: Patient is a 29-year-old female with medical history of morbid obesity BMI 60, GERD, hyperlipidemia, hypertension, type II DM not on insulin, osteoarthritis, LANE, recent ER visit on 05/14/2024 for mid back pain, treated with Toradol, Norflex, lidocaine patch, had negative x-ray, with some improvement and was discharged home from the ER. Came back on 05/20 with moderate to severe mid/upper back pain that started at rest, there is no associated chest pain or shortness of breath. No neurological deficits. CT of the aorta was concerning for focal dissection in the mid thoracic aorta versus artifact. ER discussed with vascular surgery Dr. Ochoa, recommended hospital admission, blood pressure control, patient was discussed with phlebotomist associate for ICU admission, started on labetalol infusion. Labetalol infusion was later discontinued and the patient was started on oral antihypertensives medications Patient seen and examined. She denies any pain. Her blood pressure appears to be fairly well-controlled on oral antihypertensives. No nausea vomiting reported Objective - Vital Signs Vital signs: Vital Signs Temp 98.8 F 05/21/24 00:00 Pulse 66 05/21/24 04:00 Resp 20 05/21/24 04:00 BP 145/79 05/21/24 04:00 Pulse Ox 94 L 05/21/24 04:00 FiO2 Intake & Output 05/20/24 05/21/24 05/21/24 18:59 06:59 18:59 Intake Total 425 0 100 Output Total 300 Balance 125 0 100 Weight 157.85 kg 157 kg Intake: Intake, IV Titration 425 0 100 Amount Labetalol 200 mg In 200 Sodium Chloride 0.9% 160 ml @ 2 MG/MIN 120 mls/hr IV .[id number] [facility] Rx#: [id number] Sodium Chloride 0.9% 1, 225 0 100 000 ml @ 75 mls/hr IV . [id number] [facility] Rx#:[id number] Output: Urine 300 Other: # Voids 0 0 # Bowel Movements 0 0 - Exam General: nontoxic, no distress, appears at stated age, morbidly obese female Derm: warm, dry Head: atraumatic, normocephalic, symmetric Eyes: EOMI, no lid lag, anicteric sclera, pupils equal round reactive to light ENT: Nose and ears atraumatic Neck: No thyromegaly, supple Mouth: no lip lesion, mucus membranes moist Cardiovascular: S1S2 reg, no murmur, no edema Lungs: clear to auscultation bilateral, no rhonchi, no rales, no wheeze, no accessory muscle use Abdominal: soft, nontender to palpation, no guarding, no appreciable organomegaly Ext: no gross muscle atrophy, muscle strength muscle strength 5 out of 5 in all 4 extremities, no contractures Musculoskeletal: Thoracic back tenderness Neuro: Moving all extremity spontaneously Psych: Alert, oriented, appropriate affect - Labs CBC & Chem 7: 05/21/24 05:36 05/21/24 05:36 Labs: Abnormal Lab Results - Last 24 Hours (Table) 05/20/24 05/20/24 05/20/24 Range/Units 09:02 12:40 12:54 Potassium (3.5-5.1) mmol/L POC Glucose (mg/dL) 157 H 147 H (70-110) mg/dL Ur Specific Isabel >1.050 H (1.001-1.035) Urine Protein Trace H (Negative) Ur Leukocyte Esterase Moderate H (Negative) Ur Squamous Epith Cells 6 H (0-4) /hpf Urine Mucus Rare H (None) /hpf 05/21/24 Range/Units 05:36 Potassium 3.3 L (3.5-5.1) mmol/L POC Glucose (mg/dL) (70-110) mg/dL Ur Specific Isabel (1.001-1.035) Urine Protein (Negative) Ur Leukocyte Esterase (Negative) Ur Squamous Epith Cells (0-4) /hpf Urine Mucus (None) /hpf Assessment and Plan Assessment: #) Thoracic back pain possible asymptomatic distal descending thoracic dissection. Seen by vascular surgery who reported symptoms are not secondary to dissection. He is maintained on oral antihypertensives. Can likely be transferred to medical floor/discharge home later today pending vascular surgery final recommendations. Consideration of possibly? Repeat CTA #) Primary hypertension, blood pressure is fairly adequately controlled on home lisinopril hydrochlorothiazide commendation #) GERD Continue home omeprzole #) Morbid obesity. strongly recommend weight loss with outpatient sleep study given likely lane #) Dm2 not on insulin. reports on semaglutiide at home DVT ppx: SCDS Anticipated discharge: later this evening vs. tomorrow. awaiting echo and final vascular surgery recommendations Time with Patient: Greater than 30
[2024-05-21] MEDS ORDERED: LISINOPRIL-HCTZ 10-12.5 MG 1 EACH TAB PO SCH (09:00)
[2024-05-21 09:24] VITALS: BP 137/87; TEMP 98.7
--- NOTE | 2024-05-21 10:07 | CA ---
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 67 - 155 / 56 - 104 cm??? LV Systolic Volume MOD BP 66.0 cm??? 22 - 58 / 19 - 49 cm??? LV Ejection Fraction MOD BP 60.7 % >= 55 % LV Cardiac Index MOD BP 2177.3 cm???/min???m??? LV Diastolic Volume MOD 4C 167.1 cm??? LV Systolic Volume MOD 4C 71.4 cm??? LV Ejection Fraction MOD 4C 57.3 % LV Cardiac Index MOD 4C 2047.0 cm???/min???m??? LV Diastolic Length 4C 8.9 cm LV Systolic Length 4C 7.4 cm LV Diastolic Volume MOD 2C 167.8 cm??? LV Systolic Volume MOD 2C 50.6 cm??? LV Ejection Fraction MOD 2C 69.9 % LV Cardiac Index MOD 2C 2504.9 cm???/min???m??? LV Diastolic Length 2C 8.9 cm LV Systolic Length 2C 6.0 cm LA Volume 56.7 cm??? 18 - 58 / 22 - 52 cm??? LA Volume Index 20.5 cm???/m??? 16 - 28 cm???/m??? DOPPLER AV Peak Velocity 201.6 cm/s AV Peak Gradient 16.3 mmHg AV Mean Velocity 129.6 cm/s AV Mean Gradient 7.7 mmHg AV Velocity Time Integral 40.5 cm LVOT Peak Velocity 130.9 cm/s LVOT Peak Gradient 6.8 mmHg LVOT Velocity Time Integral 24.4 cm LVOT Stroke Volume 94.5 cm??? LVOT Stroke Volume Index 38.6 ml/m??? LVOT Cardiac Index 2019.6 cm???/min???m??? AV Area Cont Eq vti 2.3 cm??? AV Area Cont Eq pk 2.5 cm??? MV Area PHT 3.9 cm??? Mitral E Point Velocity 72.5 cm/s Mitral A Point Velocity 34.7 cm/s Mitral E to A Ratio 2.1 MV Deceleration Time 195.3 ms TR Peak Velocity 267.6 cm/s TR Peak Gradient 28.6 mmHg Right Atrial Pressure 5.0 mmHg Pulmonary Artery Systolic Pressu 33.6 mmHg Right Ventricular Systolic Press 33.6 mmHg PV Peak Velocity 130.8 cm/s PV Peak Gradient 6.8 mmHg FINDINGS Left Ventricle Left ventricular ejection fraction is estimated at 55-60 %. Moderately increased septal wall thickness. Mildly increased left ventricular diastolic diameter. Severely increased left ventricular diastolic volume. Moderately increased left ventricular systolic volume. Right Ventricle Normal right ventricular size and function. Right ventricular systolic pressure within normal limits. Right Atrium Normal right atrial size. Left Atrium Mildly increased left atrial volume. Mildly increased left atrial area. Mitral Valve Structurally normal mitral valve. No evidence for mitral valve prolapse. No mitral stenosis. Trace mitral regurgitation. Aortic Valve Trileaflet aortic valve. No aortic stenosis. Trace aortic regurgitation. Tricuspid Valve Structurally normal tricuspid valve. No tricuspid stenosis. Mild tricuspid regurgitation. Pulmonic Valve Pulmonic valve not well visualized. No pulmonic stenosis. No pulmonic regurgitation. Pericardium No pericardial effusion. Aorta Normal size aortic root and proximal ascending aorta. CONCLUSIONS Normal LV size and systolic function. No significant abnormality on the Doppler exam. No significant pulmonary hypertension. No pericardial effusion Previewed by: Dr. Soni Amador MD (Electronically Signed) Final Date: 21 May 2024 10:06
--- NOTE | 2024-05-21 11:02 | P.DS ---
Providers Date of admission: 05/20/24 07:34 Attending physician: Ishmael Marie Consults: 05/20/24 07:34 Consult Physician Stat Consulting Provider: Rashi Mckeon Consult Reason/Comments: icu patient Do you want consulting provider notified?: Already Contacted 05/20/24 08:43 Consult Physician Urgent Consulting Provider: Tayo Ochoa Consult Reason/Comments: Descending aortic disection Do you want consulting provider notified?: Yes Primary care physician: [facility] Course: Patient is a 29-year-old female with medical history of morbid obesity BMI 60, GERD, hyperlipidemia, hypertension, type II DM not on insulin, osteoarthritis, FROILAN, recent ER visit on 05/14/2024 for mid back pain, treated with Toradol, Norflex, lidocaine patch, had negative x-ray, with some improvement and was discharged home from the ER. Came back on 05/20 with moderate to severe mid/upper back pain that started at rest, there is no associated chest pain or shortness of breath. No neurological deficits. CT of the aorta was concerning for focal dissection in the mid thoracic aorta versus artifact. ER discussed with vascular surgery Dr. Ochoa, recommended hospital admission, blood pressure control, patient was discussed with undercover agent for ICU admission, started on labetalol infusion. Labetalol infusion was later discontinued and the patient was started on oral antihypertensives medications. She was seen by vascular surgery who recommended outpatient follow-up with repeat imaging. The patient had an echocardiogram which had revealed an LVEF of 55 6%. Moderately increased septal wall thickness mildly increased left ventricular diastolic diameter severely increased left ventricular diastolic volume. The patient was then discharged home on . She will need follow-up with vascular surgery outpatient in addition she will benefit from a sleep study outpatient. Of note her weight is noted to be 157 kg with a BMI of 61. She may benefit from bariatric surgery evaluation outpatient Assessment: #) Thoracic back pain possible asymptomatic distal descending thoracic dissection. outpatient evaluation with vascular surgery #) Primary hypertension, blood pressure is fairly adequately controlled on home lisinopril hydrochlorothiazide commendation #) GERD Continue home omeprzole #) Morbid obesity. strongly recommend weight loss with outpatient sleep study given likely froilan. May benefit from bariatric surgery evaluation outpatient #) Dm2 not on insulin. reports on semaglutiide at home Patient Condition at Discharge: Fair Plan - Discharge Summary New Discharge Prescriptions: Continue Furosemide [Lasix] 20 mg PO DAILY Cyclobenzaprine [Flexeril] 10 mg PO TID PRN #15 tab PRN Reason: Spasms Lisinopril-Hctz 10-12.5 mg [Zestoretic 10-12.5] 1 tab PO DAILY Naproxen [Naprosyn] 500 mg PO DAILY Potassium Chloride ER [K-Dur 20] 20 meq PO DAILY Omeprazole 20 mg PO DAILY Discharge Medication List Furosemide [Lasix] 20 mg PO DAILY 02/02/22 [History] Omeprazole 20 mg PO DAILY 02/02/22 [History] Potassium Chloride ER [K-Dur 20] 20 meq PO DAILY 02/02/22 [History] Cyclobenzaprine [Flexeril] 10 mg PO TID PRN #15 tab 05/14/24 [Rx] Lisinopril-Hctz 10-12.5 mg [Zestoretic 10-12.5] 1 tab PO DAILY 05/20/24 [Histo ry] Naproxen [Naprosyn] 500 mg PO DAILY 05/20/24 [History] Follow up Appointment(s)/Referral(s): Rafaela Reyes DO [STAFF PHYSICIAN] - 2 Weeks Candelaria Menjivar MD [Primary Care Provider] - 1-2 days Rashi Mckeon MD [STAFF PHYSICIAN] - 1 Week Discharge Disposition: HOME SELF-CARE
[2024-05-21 11:35] LABS: Glucose,Whole Blood 96 mg/dL (70-110)
[2024-05-21 12:49] VITALS: PULSE 85; RESP 17
--- NOTE | 2024-05-21 13:49 | P.PN ---
Subjective Progress Note Date: 05/21/24 29-year-old female patient, morbidly obese, presented to the ED having pain in the mid and upper back area not related to breathing. The patient experienced this pain when she was watching television. No radiation to the anterior chest. No relationship to breathing. No cough or sputum production. No sweating. No diaphoresis. She is currently free of any chest pain. She came into the emergency department and patient was found to be hypertensive with an initial blood pressure 190/126. The patient was given IV labetalol 10 mg IV push with subsequent adequate control of the blood pressure and the patient was started on labetalol drip at 2 mg an hour. Currently, she is free of any chest pain. She is on room air oxygen. Pulse ox is ranging between 91 to 96%. Cardiac rhythm is sinus. She is hemodynamically stable. Labs are all within normal limits. Normal troponins. Normal renal function. Normal creatinine. The hemoglobin is at 14 with a white cell count 9.6 and a platelet count of 466. Normal coagulation profile. LFTs are mildly elevated with an AST of 39 and ALT of 120 with a normal alkaline phosphatase of 86. CT angiogram of the thoracic aorta was done and there is questionable dissection of the descending distal thoracic aorta. No evidence of any thoracic aortic aneurysm. The patient is producing adequate amount of urine output. The patient has adequate pulses in all 4 extremities. Based on all this, the patient was admitted to the intensive care unit and a vascular surgical consultation was obtained. The patient is known to have hypertension, diabetes mellitus type 2 and the patient is morbidly obese. No documented history of obstructive sleep apnea. On 05/21/2024, the patient is being seen for a follow-up. The patient is doing well with no specific complaints. No chest pain. No back pain. All pressure is under good control and the patient is currently on Zestoretic 10/12.5 mg 1 tablet a day. The patient denies having any specific complaints. Echocardiogram was done yesterday and it showed a normal left atrial ejection fraction of 55 to 60%. No significant valvular abnormalities. No acute abnormalities noted. On today's evaluation, the patient's white cell count is at the point where he was 12.7 and a platelet count of 378. BUN is at 12 with a creatinine of 0.6 and a sodium levels at 138. Potassium level needs to be replaced at 3.3. Tolerating diet. No altered mentation. No chest pain. No shortness of breath. No other complaints otherwise. Objective - Vital Signs Vital signs: Vital Signs Temp 98.7 F 05/21/24 09:00 Pulse 76 05/21/24 09:00 Resp 21 05/21/24 09:00 BP 137/87 05/21/24 09:00 Pulse Ox 96 05/21/24 09:00 FiO2 Intake & Output 05/20/24 05/21/24 05/21/24 18:59 06:59 18:59 Intake Total 425 0 100 Output Total 300 Balance 125 0 100 Weight 157.85 kg 157 kg Intake: Intake, IV Titration 425 0 100 Amount Labetalol 200 mg In 200 Sodium Chloride 0.9% 160 ml @ 2 MG/MIN 120 mls/hr IV .[id number] JANINA Rx#: [id number] Sodium Chloride 0.9% 1, 225 0 100 000 ml @ 75 mls/hr IV . [id number] JANINA Rx#:[id number] Output: Urine 300 Other: # Voids 0 0 # Bowel Movements 0 0 - Exam Morbidly obese with a BMI of 61.6, the patient is currently on room air oxygen The patient appeared well nourished and normally developed. Vital signs as documented. Head exam is unremarkable. No scleral icterus or corneal arcus noted. Neck is without jugular venous distension, thyromegaly, or carotid bruits. Carotid upstrokes are brisk bilaterally. Lungs are clear to auscultation and percussion. Cardiac exam reveals the PMI to be normally sized and situated. Rhythm is regular. First and second heart sounds normal. No murmurs, rubs or gallops. Abdominal exam reveals normal bowel sounds, no masses, no organomegaly and no aortic enlargement. Extremities are nonedematous and both femoral and pedal pulses are normal. Examination of the skin revealed no evidence of significant rashes, suspicious appearing nevi or other concerning lesions. Neurologically, the patient is awake and alert and the patient does not have any focal neurological deficit. Cranial nerves are essentially intact. - Labs CBC & Chem 7: 05/21/24 05:36 05/21/24 05:36 Labs: Abnormal Lab Results - Last 24 Hours (Table) 01/27/25 01/27/25 01/28/25 Range/Units 12:40 12:54 05:36 Potassium 3.3 L (3.5-5.1) mmol/L POC Glucose (mg/dL) 147 H (70-110) mg/dL Ur Specific [place] >1.050 H (1.001-1.035) Urine Protein Trace H (Negative) Ur Leukocyte Esterase Moderate H (Negative) Ur Squamous Epith Cells 6 H (0-4) /hpf Urine Mucus Rare H (None) /hpf Assessment and Plan Plan: Mid thoracic posterior back pain, recovered. Patient presented with hypertensive urgency, given labetalol in the emergency department and the symone ent is currently on labetalol drip at 2 mg an hour. Patient is currently free of any chest pain and the BP is under good control. CT of the thoracic aorta shows questionable asymptomatic distal descending thoracic dissection versus an artifact. Vascular surgery is on the case. Adequate pulse in all 4 extremities. Vascular surgery evaluated the patient and repeat CAT scan of the chest will be done on outpatient basis and follow-up Hypertensive urgency, improved and the patient's blood pressure normalized, currently on Zestoretic Hypertension Diabetes mellitus type 2 Morbid obesity with a BMI of 61.6 Plan Continue Zestoretic Blood pressure control has been achieved Free of any chest pain or back pain Vascular surgical consultation was obtained and there input is appreciated Outpatient PSG with high suspicion for obstructive sleep apnea Echocardiogram was noted and the findings were normal Will continue to follow, the patient will be transferred out of the intensive care unit.
== END 2024-05-21 12:48 | disposition home or self-care (01) | DRG 300 ==
LOC: EC 03:06 → 2SICU 07:34
PROVIDERS: ADMIT Student in an Organized Health Care Education/Training Program; ATTEND Student in an Organized Health Care Education/Training Program
DX: I71.012 Dissection of descending thoracic aorta (principal); Z68.44 Body mass index [BMI] 60.0-69.9, adult; I16.0 Hypertensive urgency; E11.9 Type 2 diabetes mellitus without complications; R74.8 Abnormal levels of other serum enzymes; E66.01 Morbid (severe) obesity due to excess calories; I10 Essential (primary) hypertension; E78.5 Hyperlipidemia, unspecified; F90.9 Attention-deficit hyperactivity disorder, unspecified type; K21.9 Gastro-esophageal reflux disease without esophagitis; Z79.84 Long term (current) use of oral hypoglycemic drugs; Z79.899 Other long term (current) drug therapy; Z79.85 Long-term (current) use of injectable non-insulin antidiabetic drugs
CPT/HCPCS: 36415; 71275; 74174; 80048; 80053; 81001; 83036; 83735; 84484; 84702; 85025; 85027; 85610; 85730; 93005; 93306; 96361; 96365; 96375; 99291

== ENCOUNTER → 2024-07-15 | Outpatient (CLI) | payer BC ==
[2024-07-15 10:59] LABS: African American GFR (CKD) >90 (>60 ml/min/1.73 sqM); Blood Urea Nitrogen 12 mg/dL (7-17); Non-African American GFR(CKD) >90 (>60 ml/min/1.73 sqM)
--- NOTE | 2024-07-15 14:57 | CT ---
EXAMINATION TYPE: CT angio thor/abd pel aorta DATE OF EXAM: 07/15/2024 COMPARISON: Prior CT May 20, 2024 CLINICAL INDICATION: Female, 29 years old with history of I71.02 DISSECTION OF ABDOMINAL AORTA, Abdom inal aortic dissection, TECHNIQUE: CTA scan of the thorax, abdomen and pelvis is performed without and with IV Contrast, patient injecte d with 100 ml mL of Isovue 370. Three-D reconstructed images are created and then a workstation and r [employer] [place] CT DLP: 3174.40 mGycm. Automated Exposure Control for Dose Reduction was Utilized. FINDINGS: Suboptimal study due to poor contrast bolus. Suboptimal study also due to large body habitu s. VASCULAR: No suspicious hyperdense material on noncontrast images to suggest intramural hematoma. Nor mal 3 vessel origin from the aortic arch. Patent celiac artery and SMA redemonstrated. There is small caliber aorta beginning at level of diaphragm redemonstrated abdominal aorta is slightly more promin ent in size distally distally. LUNGS: The lungs are grossly clear, there is no concerning parenchymal mass or nodule identified. T here is no pleural effusion or pneumothorax seen. The tracheobronchial tree is patent. HEART: Cardiomegaly redemonstrated. No significant coronary artery calcifications. MEDIASTINUM: There are no greater than 1 cm hilar or mediastinal lymph nodes. No pericardial effusi on is seen. LIVER/GB: No significant abnormality is appreciated. PANCREAS: No significant abnormality is seen. SPLEEN: No significant abnormality is seen. ADRENALS: No significant abnormality is seen. KIDNEYS: No significant abnormality is seen. BOWEL: No significant abnormality is seen. GENITAL ORGANS: No gross abnormality seen. LYMPH NODES: No greater than 1cm abdominal or pelvic lymph nodes are appreciated. OSSEOUS STRUCTURES: Persistent bilateral pars defect L5 level with minimal grade 1 anterolisthesis L5 on S1 and moderate disc space narrowing at L5-S1 level. OTHER: No significant additional abnormality is seen. IMPRESSION: Prior visualized focal dissection of the distal thoracic aorta is less well-seen on curre nt study. It likely is still present and stable. Current study is suboptimal. There is redemonstratio n of small caliber abdominal aorta similar to prior. [facility], , 07/15/2024 2:55 PM
== END | disposition home or self-care (01) ==
LOC: RADCTMAIN 09:48
PROVIDERS: ATTEND Surgery
DX: I71.02 Dissection of abdominal aorta (principal); I51.7 Cardiomegaly
CPT/HCPCS: 82565; 84520; 71275; 36415; 74174; Q9967

== ENCOUNTER 2024-09-12 16:37 | Emergency (ER) | payer BC ==
--- NOTE | 2024-09-12 17:09 | ED ---
General Adult HPI - General Chief complaint: ENT Stated complaint: trouble swallowing Time Seen by Provider: 09/12/24 16:53 Source: patient, RN notes reviewed Mode of arrival: ambulatory Limitations: no limitations - History of Present Illness Initial comments: This is a 29-year-old female with a history of hypertension presenting to the emergency department for complaints of sore throat, sinus drainage, nausea that started this morning when she woke up. Patient states that she had a small episode of "throwing up in her mouth ". She denies cough, congestion, difficulty in breathing, heart palpitations, abdominal pain, urinary or bowel habit changes. Patient denies dysphagia, dysphagia, tongue, or lip swelling. States that she has not taken any medications today yet to alleviate symptoms. - Related Data Home Medications Medication Instructions Recorded Confirmed Furosemide [Lasix] 20 mg PO DAILY 02/02/22 05/20/24 Omeprazole 20 mg PO DAILY 02/02/22 05/20/24 Potassium Chloride ER [K-Dur 20] 20 meq PO DAILY 02/02/22 05/20/24 Lisinopril-Hctz 10-12.5 mg 1 tab PO DAILY 05/20/24 05/20/24 [Zestoretic 10-12.5] Naproxen [Naprosyn] 500 mg PO DAILY 05/20/24 05/20/24 Previous Rx's Medication Instructions Recorded Cyclobenzaprine [Flexeril] 10 mg PO TID PRN #15 tab 05/14/24 Allergies Allergy/AdvReac Type Severity Reaction Status Date / Time chicken derived [Chicken] Allergy Swelling Verified 09/12/24 16:52 Review of Systems ROS Statement: Those systems with pertinent positive or pertinent negative responses have been documented in the HPI. ROS Other: All systems not noted in ROS Statement are negative. Past Medical History Past Medical History: Diabetes Mellitus, Hypertension Additional Past Medical History / Comment(s): obesity History of Any Multi-Drug Resistant Organisms: None Reported Past Surgical History: Orthopedic Surgery Additional Past Surgical History / Comment(s): Left hand tendon surgery Past Anesthesia/Blood Transfusion Reactions: No Reported Reaction Past Psychological History: ADD/ADHD Smoking Status: Never smoker Past Alcohol Use History: None Reported Past Drug Use History: None Reported - Past Family History Father Family Medical History: Hypertension Mother Family Medical History: Diabetes Mellitus General Exam Limitations: no limitations General appearance: alert, in no apparent distress Eye exam: Present: normal appearance, PERRL, EOMI. Absent: scleral icterus, conjunctival injection, periorbital swelling ENT exam: Present: normal exam, mucous membranes moist, other (posterior oropharynx erythema) Expanded Throat exam: negative: tonsillomegaly, tonsillar exudate, R peritonsillar mass, L peritonsillar mass Neck exam: Present: normal inspection. Absent: tenderness, meningismus, lymphadenopathy Respiratory exam: Present: normal lung sounds bilaterally. Absent: respiratory distress, wheezes, rales, rhonchi, stridor Cardiovascular Exam: Present: regular rate, normal rhythm, normal heart sounds. Absent: systolic murmur, diastolic murmur, rubs, gallop, clicks GI/Abdominal exam: Present: soft, normal bowel sounds. Absent: distended, tenderness, guarding, rebound, rigid Skin exam: Present: warm, dry, intact, normal color. Absent: rash Course Vital Signs 09/12/24 16:50 Temperature 99.6 F Pulse Rate 120 H Respiratory 17 Rate Blood Pressure 178/85 O2 Sat by Pulse 99 Oximetry Medical Decision Making - Medical Decision Making Was pt. sent in by a medical professional or institution (, PA, PASTRY CHEF, urgent care, hospital, or [place] health care facility...) When possible be specific @ -No Did you speak to anyone other than the patient for history (EMS, parent, family, police, friend...)? What history was obtained from this source @ -No Did you review nursing and triage notes (agree or disagree)? Why? @ -I reviewed and agree with nursing and triage notes Were old charts reviewed (outside hosp., previous admission, EMS record, old EKG, old radiological studies, urgent care reports/EKG's, [place] health care facility records)? Report findings @ -No old charts were reviewed Differential Diagnosis (chest pain, altered mental status, abdominal pain women, abdominal pain men, vaginal bleeding, weakness, fever, dyspnea, syncope, headache, dizziness, GI bleed, back pain, seizure, CVA, palpatations, mental health, musculoskeletal)? @ -COVID 19, RSV, influenza, pneumonia, acute bronchitis, URI, this list is not all inclusive EKG interpreted by me (3pts min.). @ -None X-rays interpreted by me (1pt min.). @ -None done CT interpreted by me (1pt min.). @ -None done U/S interpreted by me (1pt. min.). @ -None done What testing was considered but not performed or refused? (CT, X-rays, U/S, labs)? Why? @ -None What meds were considered but not given or refused? Why? @ -None Did you discuss the management of the patient with other professionals (professionals i.e. DrOlayinka, PA, PA[employer] CHEF, lab, RT, psych nurse, medical social worker, diet attendant, teacher, parking regulation enforcement officer, case hardener)? Give summary @ -No Was smoking cessation discussed for >3mins.? @ -No Was critical care preformed (if so, how long)? @ -No Were there social determinants of health that impacted care today? How? (Homelessness, low income, unemployed, alcoholism, drug addiction, transportation, low edu. Level, literacy, decrease access to med. care, shelter, rehab)? @ -No Was there de-escalation of care discussed even if they declined (Discuss DNR or withdrawal of care, Hospice)? DNR status @ -No What co-morbidities impacted this encounter? (DM, HTN, Smoking, COPD, CAD, Cancer, CVA, ARF, Chemo, Hep., AIDS, mental health diagnosis, sleep apnea, morbid obesity)? @ -None Was patient admitted / discharged? Hospital course, mention meds given and route, prescriptions, significant lab abnormalities, going to OR and other pertinent info. @ -Discharge. 29-year-old female presenting with sore throat and nausea. Patient has a low-grade fever on arrival overall is well-appearing. Patient has mild posterior oropharynx erythema with no signs of tonsillar exudate or swelling. Is provided with Tylenol, Motrin, and Zofran. Viral testing is negative. Strep testing is negative. Patient's symptoms likely secondary to viral pharyngitis. Supportive treatment discussed at bedside. Case discussed with Dr. Ribera. Undiagnosed new problem with uncertain prognosis? @ -No Drug Therapy requiring intensive monitoring for toxicity (Heparin, Nitro, Insulin, Cardizem)? @ -No Were any procedures done? @ -No Diagnosis/symptom? @ -Viral pharyngitis Acute, or Chronic, or Acute on Chronic? @ -Acute Uncomplicated (without systemic symptoms) or Complicated (systemic symptoms)? @ -Uncomplicated Side effects of treatment? @ -No Exacerbation, Progression, or Severe Exacerbation? @ -No Poses a threat to life or bodily function? How? (Chest pain, USA, MS, pneumonia, PE, COPD, DKA, ARF, appy, cholecystitis, CVA, Diverticulitis, Homicidal, Suicidal, threat to staff... and all critical care pts) @ -No - Lab Data Lab Results 09/12/24 09/12/24 Range/Units 17:22 17:22 Influenza Type A (PCR) Not Detected (Not Detectd) Influenza Type B (PCR) Not Detected (Not Detectd) RSV (PCR) Not Detected (Not Detectd) SARS-CoV-2 (PCR) Not Detected (Not Detectd) Group A Strep (PCR) NOT DETECTED (Not Detectd) Disposition Clinical Impression: Acute viral pharyngitis Disposition: HOME SELF-CARE Condition: Stable Instructions (If sedation given, give patient instructions): Pharyngitis (ED) Additional Instructions: Please return to the Emergency Department if symptoms worsen or any other concerns. Is patient prescribed a controlled substance at d/c from ED?: No Referrals: Candelaria Menjivar MD [Primary Care Provider] - 1-2 days Time of Disposition: 18:08
[2024-09-12] MEDS: IBUPROFEN 600 MG TAB PO STA (17:19)
[2024-09-12] MEDS: ACETAMINOPHEN TAB 325 MG TAB PO STA (17:20)
[2024-09-12] MEDS: ONDANSETRON ODT 4 MG TAB PO STA (17:21)
[2024-09-12 18:05] LABS: Influenza A Not Detected (Not Detectd); Influenza B Not Detected (Not Detectd); RSV Not Detected (Not Detectd)
[2024-09-12 18:28] VITALS: BP 156/84; PULSE 96; RESP 19; TEMP 98.1
== END 2024-09-12 18:27 | disposition home or self-care (01) ==
LOC: EC 16:37
DX: J02.9 Acute pharyngitis, unspecified (principal); B97.89 Other viral agents as the cause of diseases classified elsewhere; I10 Essential (primary) hypertension; Z91.014 Allergy to mammalian meats
CPT/HCPCS: 87636; 87651; 99283

== ENCOUNTER 2024-09-25 16:34 | Emergency (ER) | payer BC ==
--- NOTE | 2024-09-25 18:03 | ED ---
Nausea/Vomiting/Diarrhea HPI - General Source: patient, RN notes reviewed Mode of arrival: ambulatory Limitations: no limitations <Ana Delvalle - Last Filed: 09/25/24 18:02> <Mily Ferro - Last Filed: 10/20/24 17:53> - General Chief complaint: Nausea/Vomiting/Diarrhea Stated complaint: Vomiting Time Seen by Provider: 09/25/24 18:02 - History of Present Illness Initial comments: Quick note: 29-year-old female presented the ER for evaluation of nausea and vomiting. She states while at work she started to experience nausea with 1 episode of vomiting. She denies any chills, abdominal pain, diarrhea/consti pation or urinary complaints. Denies . No chest pain or shortness of breath. (Ana Delvalle) 29-year-old female presents ER for nausea and vomiting. States that she was at work and had sudden onset of nausea with 1 episode of vomiting. 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 She denies any abdominal pain. No changes in her urination. No diarrhea or constipation. No concern for . No chest pain or shortness of breath. States that she came to the emergency department almost immediately and being in the cold air her symptoms have resolved. No other alleviating, precipitating modifying factors (Mily Ferro) - Related Data Home Medications Medication Instructions Recorded Confirmed Furosemide [Lasix] 20 mg PO DAILY 02/02/22 05/20/24 Omeprazole 20 mg PO DAILY 02/02/22 05/20/24 Potassium Chloride ER [K-Dur 20] 20 meq PO DAILY 02/02/22 05/20/24 Lisinopril-Hctz 10-12.5 mg 1 tab PO DAILY 05/20/24 05/20/24 [Zestoretic 10-12.5] Naproxen [Naprosyn] 500 mg PO DAILY 05/20/24 05/20/24 Previous Rx's Medication Instructions Recorded Cyclobenzaprine [Flexeril] 10 mg PO TID PRN #15 tab 05/14/24 Ketorolac [Toradol] 10 mg PO Q8HR #15 tab 10/03/24 Lidocaine 5% Patch [Lidoderm] 1 each TP DAILY 14 Days #14 patch 10/03/24 Allergies Allergy/AdvReac Type Severity Reaction Status Date / Time chicken derived [Chicken] Allergy Swelling Verified 10/03/24 14:27 Review of Systems ROS Other: All systems not noted in ROS Statement are negative. <Ana Delvalle - Last Filed: 09/25/24 18:02> ROS Other: All systems not noted in ROS Statement are negative. <Mily Ferro - Last Filed: 10/20/24 17:53> ROS Statement: Those systems with pertinent positive or pertinent negative responses have been documented in the HPI. Past Medical History Past Medical History: Diabetes Mellitus, Hypertension Additional Past Medical History / Comment(s): obesity History of Any Multi-Drug Resistant Organisms: None Reported Past Surgical History: Orthopedic Surgery Additional Past Surgical History / Comment(s): Left hand tendon surgery Past Anesthesia/Blood Transfusion Reactions: No Reported Reaction Past Psychological History: ADD/ADHD Smoking Status: Never smoker Past Alcohol Use History: None Reported Past Drug Use History: None Reported - Past Family History Father Family Medical History: Hypertension Mother Family Medical History: Diabetes Mellitus <Ana Delvalle - Last Filed: 09/25/24 18:02> General Exam Limitations: no limitations <Ana Delvalle - Last Filed: 09/25/24 18:02> General appearance: alert, in no apparent distress Head exam: Present: atraumatic, normocephalic, normal inspection Eye exam: Present: normal appearance, PERRL, EOMI. Absent: scleral icterus, conjunctival injection, periorbital swelling ENT exam: Present: normal exam, mucous membranes moist Neck exam: Present: normal inspection. Absent: tenderness, meningismus, lymphadenopathy Respiratory exam: Present: normal lung sounds bilaterally. Absent: respiratory distress, wheezes, rales, rhonchi, stridor Cardiovascular Exam: Present: regular rate, normal rhythm, normal heart sounds. Absent: systolic murmur, diastolic murmur, rubs, gallop, clicks GI/Abdominal exam: Present: soft, normal bowel sounds. Absent: distended, tenderness, guarding, rebound, rigid Extremities exam: Present: normal inspection, full ROM, normal capillary refill. Absent: tenderness, pedal edema, joint swelling, calf tenderness Back exam: Present: normal inspection Neurological exam: Present: alert, oriented X3, CN II-XII intact Psychiatric exam: Present: normal affect, normal mood Skin exam: Present: warm, dry, intact, normal color. Absent: rash <Mily Ferro - Last Filed: 10/20/24 17:53> - General Exam Comments Initial Comments: Visual Physical Exam Vital signs reviewed General: Well-appearing, nontoxic, no acute distress. Head: Normocephalic, atraumatic Eyes: PERRLA, EOMI ENT: Airway patent Chest: Nonlabored breathing Skin: No visual rash, normal skin tone Neuro: Alert and oriented 3 Musculoskeletal: No gross abnormalities (Ana Delvalle) Course Vital Signs 09/25/24 09/25/24 09/25/24 16:54 19:37 19:43 Temperature 97.6 F 97.9 F Pulse Rate 94 101 H Respiratory 16 17 Rate Blood Pressure 173/100 160/114 173/104 O2 Sat by Pulse 97 99 Oximetry Medical Decision Making <Ana Delvalle - Last Filed: 09/25/24 18:02> - Lab Data Result diagrams: 09/25/24 18:34 09/25/24 18:34 <Mily Ferro - Last Filed: 10/20/24 17:53> - Medical Decision Making I performed the quick note portion of this chart. Electronically signed by Ana Lopez PA-C (Ana Delvalle) Was pt. sent in by a medical professional or institution (RAFAELA Fitzpatrick, PATENT PROSECUTION ATTORNEY, urgent care, hospital, or alf...) When possible be specific @ -Patient was sent in by her work Did you speak to anyone other than the patient for history (EMS, parent, family, police, friend...)? What history was obtained from this source @ -No Did you review nursing and triage notes (agree or disagree)? Why? @ -I reviewed and agree with nursing and triage notes Were old charts reviewed (outside hosp., previous admission, EMS record, old EKG, old radiological studies, urgent care reports/EKG's, alf records)? Report findings @ -No old charts were reviewed Differential Diagnosis (chest pain, altered mental status, abdominal pain women, abdominal pain men, vaginal bleeding, weakness, fever, dyspnea, syncope, headache, dizziness, GI bleed, back pain, seizure, CVA, palpatations, mental health, musculoskeletal)? @ -Differential Appendicitis, Cholecystitis, diverticulosis, ischemic bowel, pancreatitis, hepatitis, UTI, gastroenteritis, AAA, incarcerated hernia, bowel obstruction, constipation, inflammatory bowel, hepatitis, peptic ulcer disease, splenic infarction, perforated viscus, vulvitis, ovarian torsion, PID, kidney stone, placenta abruption, this is not meant to be an all-inclusive list EKG interpreted by me (3pts min.). @ -Not done X-rays interpreted by me (1pt min.). @ -None done CT interpreted by me (1pt min.). @ -None done U/S interpreted by me (1pt. min.). @ -None done What testing was considered but not performed or refused? (CT, X-rays, U/S, labs)? Why? @ -None What meds were considered but not given or refused? Why? @ -None Did you discuss the management of the patient with other professionals (pr ofessionals i.e. , PA, PATENT PROSECUTION ATTORNEY, lab, RT, psych nurse, social services counselor, television schedule coordinator, teacher, chairman and chief executive officer, vocational case manager)? Give summary @ -No Was smoking cessation discussed for >3mins.? @ -No Was critical care preformed (if so, how long)? @ -No Were there social determinants of health that impacted care today? How? (Homelessness, low income, unemployed, alcoholism, drug addiction, transportation, low edu. Level, literacy, decrease access to med. care, intermediate, rehab)? @ -No Was there de-escalation of care discussed even if they declined (Discuss DNR or withdrawal of care, Hospice)? DNR status @ -No What co-morbidities impacted this encounter? (DM, HTN, Smoking, COPD, CAD, Cancer, CVA, ARF, Chemo, Hep., AIDS, mental health diagnosis, sleep apnea, morbid obesity)? @ -None Was patient admitted / discharged? Hospital course, mention meds given and route, prescriptions, significant lab abnormalities, going to OR and other pertinent info. @ -Upon arrival patient seen and evaluated in bed 27. Thorough history and physical exam was performed. Patient states she feels completely resolved at th is time and therefore she wants to go home. I discussed the laboratory studies with the patient. I did offer Zofran for at home however patient refused. She is to follow-up with Dr. Cordelia pond and return for any new or worsening symptoms Undiagnosed new problem with uncertain prognosis? @ -No Drug Therapy requiring intensive monitoring for toxicity (Heparin, Nitro, Insulin, Cardizem)? @ -No Were any procedures done? @ -No Diagnosis/symptom? @ -Acute nausea vomiting Acute, or Chronic, or Acute on Chronic? @ -Acute Uncomplicated (without systemic symptoms) or Complicated (systemic symptoms)? @ -Uncomplicated Side effects of treatment? @ -No Exacerbation, Progression, or Severe Exacerbation? @ -No Poses a threat to life or bodily function? How? (Chest pain, [place], [place], pneumonia, PE, COPD, DKA, ARF, appy, cholecystitis, CVA, Diverticulitis, Homicidal, Suicidal, threat to staff... and all critical care pts) @ -No (Mily Ferro) - Lab Data Lab Results 09/25/24 09/25/24 09/25/24 Range/Units 18:34 18:34 18:34 WBC 10.60 H (4.50-10.00) 10*3/uL RBC 5.04 (4.10-5.20) 10*6/uL Hgb 14.2 (12.0-15.0) g/dL Hct 43.1 (37.2-46.3) % MCV 85.5 (80.0-97.0) fL MCH 28.2 (27.0-32.0) pg MCHC 32.9 (32.0-37.0) g/dL Plt Count 447 H (140-440) 10*3/uL MPV 8.5 L (9.5-12.2) fL Immature Gran % (Auto) 0.3 % Neutrophils % 62.9 % Lymphocytes % 27.0 % Monocytes % 8.4 % Eosinophils % 0.8 % Basophils % 0.6 % Immature Gran # 0.03 (0.00-0.04) 10*3/uL Neutrophils # 6.68 (1.80-7.70) 10*3/uL Lymphocytes # 2.86 (0.90-5.00) 10*3/uL Monocytes # 0.89 (0.20-1.00) 10*3/uL Eosinophils # 0.08 (0.04-0.35) 10*3/uL Basophils # 0.06 (0.00-0.10) 10*3/uL Sodium 140 (137-145) mmol/L Potassium 4.7 (3.5-5.1) mmol/L Chloride 106 (98-107) mmol/L Carbon Dioxide 25 (22-30) mmol/L Anion Gap 9 mmol/L BUN 15 (7-17) mg/dL Creatinine 0.84 (0.52-1.04) mg/dL Est GFR (CKD-EPI)AfAm >90 (>60 ml/min/1.73 sqM) Est GFR (CKD-EPI)NonAf >90 (>60 ml/min/1.73 sqM) Glucose 90 (74-99) mg/dL Plasma Lactic Acid Tim 1.0 (0.7-2.0) mmol/L Calcium 9.5 (8.4-10.2) mg/dL Total Bilirubin 0.8 (0.2-1.3) mg/dL AST 27 (14-36) U/L ALT 35 H (4-34) U/L Alkaline Phosphatase 65 (38-126) U/L Total Protein 8.3 H (6.3-8.2) g/dL Albumin 4.3 (3.5-5.0) g/dL Urine Color Urine Appearance (Clear) Urine pH (5.0-8.0) Ur Specific [place] (1.001-1.035) Urine Protein (Negative) Urine Glucose (UA) (Negative) Urine Ketones (Negative) Urine Blood (Negative) Urine Nitrite (Negative) Urine Bilirubin (Negative) Urine Urobilinogen (<2.0) mg/dL Ur Leukocyte Esterase (Negative) Urine RBC (0-5) /hpf Urine WBC (0-5) /hpf Ur Squamous Epith Cells (0-4) /hpf Hyaline Casts (0-2) /lpf Urine Mucus (None) /hpf Urine HCG, Qual (Not Detectd) 09/25/24 09/25/24 Range/Units 19:33 19:33 WBC (4.50-10.00) 10*3/uL RBC (4.10-5.20) 10*6/uL Hgb (12.0-15.0) g/dL Hct (37.2-46.3) % MCV (80.0-97.0) fL MCH (27.0-32.0) pg MCHC (32.0-37.0) g/dL Plt Count (140-440) 10*3/uL MPV (9.5-12.2) fL Immature Gran % (Auto) % Neutrophils % % Lymphocytes % % Monocytes % % Eosinophils % % Basophils % % Immature Gran # (0.00-0.04) 10*3/uL Neutrophils # (1.80-7.70) 10*3/uL Lymphocytes # (0.90-5.00) 10*3/uL Monocytes # (0.20-1.00) 10*3/uL Eosinophils # (0.04-0.35) 10*3/uL Basophils # (0.00-0.10) 10*3/uL Sodium (137-145) mmol/L Potassium (3.5-5.1) mmol/L Chloride (98-107) mmol/L Carbon Dioxide (22-30) mmol/L Anion Gap mmol/L BUN (7-17) mg/dL Creatinine (0.52-1.04) mg/dL Est GFR (CKD-EPI)AfAm (>60 ml/min/1.73 sqM) Est GFR (CKD-EPI)NonAf (>60 ml/min/1.73 sqM) Glucose (74-99) mg/dL Plasma Lactic Acid Tim (0.7-2.0) mmol/L Calcium (8.4-10.2) mg/dL Total Bilirubin (0.2-1.3) mg/dL AST (14-36) U/L ALT (4-34) U/L Alkaline Phosphatase (38-126) U/L Total Protein (6.3-8.2) g/dL Albumin (3.5-5.0) g/dL Urine Color Yellow Urine Appearance Cloudy H (Clear) Urine pH 5.5 (5.0-8.0) Ur Specific [place] 1.032 (1.001-1.035) Urine Protein Trace H (Negative) Urine Glucose (UA) Negative (Negative) Urine Ketones Negative (Negative) Urine Blood Negative (Negative) Urine Nitrite Negative (Negative) Urine Bilirubin Negative (Negative) Urine Urobilinogen 2.0 (<2.0) mg/dL Ur Leukocyte Esterase Large H (Negative) Urine RBC 12 H (0-5) /hpf Urine WBC 43 H (0-5) /hpf Ur Squamous Epith Cells 13 H (0-4) /hpf Hyaline Casts 1 (0-2) /lpf Urine Mucus Many H (None) /hpf Urine HCG, Qual Not Detected (Not Detectd) Disposition <Ana Delvalle - Last Filed: 09/25/24 18:02> Is patient prescribed a controlled substance at d/c from ED?: No Time of Disposition: 19:28 <Mily Ferro - Last Filed: 10/20/24 17:53> Clinical Impression: Nausea and vomiting Disposition: HOME SELF-CARE Condition: Stable Instructions (If sedation given, give patient instructions): Acute Nausea and Vomiting (ED) Additional Instructions: Please follow-up with your primary care doctor in 2-4 days and return for any new or worsening symptoms Referrals: Candelaria Menjivar MD [Primary Care Provider] - 1-2 days
[2024-09-25 18:42] LABS: Basophils # (A) 0.06 10*3/uL (0.00-0.10); Basophils % (A) 0.6 %; Eosinophils # (A) 0.08 10*3/uL (0.04-0.35); Eosinophils % (A) 0.8 %; HCT 43.1 % (37.2-46.3); HGB 14.2 g/dL (12.0-15.0); Lymphocytes # (A) 2.86 10*3/uL (0.90-5.00); MCH 28.2 pg (27.0-32.0); MCHC 32.9 g/dL (32.0-37.0); MCV 85.5 fL (80.0-97.0); Mean Platelet Volume 8.5 fL (9.5-12.2); Monocytes # (A) 0.89 10*3/uL (0.20-1.00); Monocytes % (A) 8.4 %; Neutrophils # (A) 6.68 10*3/uL (1.80-7.70); Neutrophils % (A) 62.9 %; Platelet Count 447 10*3/uL (140-440); RBC 5.04 10*6/uL (4.10-5.20); RDW 13.5 % (11.5-14.5)
[2024-09-25 19:02] LABS: ALT 35 U/L (4-34); AST 27 U/L (14-36); African American GFR (CKD) >90 (>60 ml/min/1.73 sqM); Albumin 4.3 g/dL (3.5-5.0); Alkaline Phosphatase 65 U/L (38-126); Anion Gap 9 mmol/L; Blood Urea Nitrogen 15 mg/dL (7-17); Calcium 9.5 mg/dL (8.4-10.2); Carbon Dioxide 25 mmol/L (22-30); Chloride 106 mmol/L (98-107); Glucose 90 mg/dL (74-99); Non-African American GFR(CKD) >90 (>60 ml/min/1.73 sqM); Potassium 4.7 mmol/L (3.5-5.1); Sodium 140 mmol/L (137-145); Total Bilirubin 0.8 mg/dL (0.2-1.3); Total Protein 8.3 g/dL (6.3-8.2)
[2024-09-25 19:40] VITALS: PULSE 101; RESP 17; TEMP 97.9
[2024-09-25 19:43] VITALS: BP 173/104
[2024-09-25 20:05] LABS: Appearance,Urine Cloudy (Clear); Bilirubin,Urine Negative (Negative); Blood,Urine Negative (Negative); Color,Urine Yellow; Glucose,Urine (UA) Negative (Negative); Hyaline Casts,Urine 1 /lpf (0-2); Ketones,Urine Negative (Negative); Leukocyte Esterase,Urine Large (Negative); Mucus,Urine Many /hpf; Nitrite,Urine Negative (Negative); PH, Urine 5.5 (5.0-8.0); Protein,Urine Trace (Negative); RBC,Urine 12 /hpf (0-5); Specific Gravity,Urine 1.032 (1.001-1.035); Squamous Epithelial Cell,Urine 13 /hpf (0-4); WBC,Urine 43 /hpf (0-5)
== END 2024-09-25 19:44 | disposition home or self-care (01) ==
LOC: EC 16:34
DX: R11.2 Nausea with vomiting, unspecified (principal); Z91.014 Allergy to mammalian meats
CPT/HCPCS: 36415; 80053; 81001; 81025; 83605; 85025; 99283

== ENCOUNTER 2024-10-03 14:12 | Emergency (ER) | payer BC ==
[2024-10-03 14:30] VITALS: TEMP 98.2
[2024-10-03 15:31] VITALS: RESP 16
[2024-10-03 15:40] LABS: Basophils # (A) 0.04 10*3/uL (0.00-0.10); Basophils % (A) 0.6 %; Eosinophils # (A) 0.04 10*3/uL (0.04-0.35); Eosinophils % (A) 0.6 %; HCT 41.3 % (37.2-46.3); HGB 13.9 g/dL (12.0-15.0); Lymphocytes # (A) 2.05 10*3/uL (0.90-5.00); Lymphocytes % (A) 28.3 %; MCH 28.5 pg (27.0-32.0); MCHC 33.7 g/dL (32.0-37.0); MCV 84.8 fL (80.0-97.0); Monocytes # (A) 0.56 10*3/uL (0.20-1.00); Monocytes % (A) 7.7 %; Neutrophils # (A) 4.53 10*3/uL (1.80-7.70); Neutrophils % (A) 62.5 %; Platelet Count 475 10*3/uL (140-440); RBC 4.87 10*6/uL (4.10-5.20); RDW 13.5 % (11.5-14.5); WBC 7.24 10*3/uL (4.50-10.00)
[2024-10-03] MEDS: LABETALOL 5 MG/ML VIAL MDV IVP STA (16:10)
[2024-10-03 16:17] LABS: ALT 36 U/L (4-34); AST 26 U/L (14-36); African American GFR (CKD) >90 (>60 ml/min/1.73 sqM); Albumin 4.2 g/dL (3.5-5.0); Alkaline Phosphatase 69 U/L (38-126); Anion Gap 9 mmol/L; Blood Urea Nitrogen 16 mg/dL (7-17); Calcium 9.5 mg/dL (8.4-10.2); Carbon Dioxide 23 mmol/L (22-30); Chloride 108 mmol/L (98-107); Glucose 108 mg/dL (74-99); Non-African American GFR(CKD) >90 (>60 ml/min/1.73 sqM); Potassium 4.3 mmol/L (3.5-5.1); Sodium 140 mmol/L (137-145); Total Bilirubin 0.9 mg/dL (0.2-1.3); Total Protein 8.1 g/dL (6.3-8.2)
[2024-10-03] MEDS: KETOROLAC 15 MG/ML 1 ML VIAL IVP STA (16:56)
[2024-10-03] MEDS: ORPHENADRINE 30 MG/ML 2 ML VIAL IM STA (16:56)
[2024-10-03 16:58] VITALS: BP 136/82; PULSE 70
--- NOTE | 2024-10-03 17:53 | ED ---
Back Pain [facility] - General Chief Complaint: Back Pain/Injury Stated Complaint: Back Pain Time Seen by Provider: 10/03/24 14:45 Source: patient Limitations: no limitations - History of Present Illness Initial Comments: The patient is a 29-year-old female with multiple comorbidities including hypertension, diabetes, hyperlipidemia, morbid obesity, chronic back pain and possible aortic dissection. The patient has been seen multiple times over the last several months for similar back pain complaints. She denies any falls or injuries. Patient states that this episode of pain started yesterday when she got home from work. She states that she did take her muscle relaxer which did help the pain however the pain returned again today even worse. She states she is unable to take the muscle relaxer as it makes her too drowsy. The patient denies any new pain fall or injury. She states it feels similar to when she has been seen in the past. She denies any chest pain, shortness of breath, hemoptysis, cough, congestion or fever. Denies any dysuria hematuria urinary frequency. Patient denies any lumbar back pain. Denies any saddle anesthesia or loss of bowel or bladder control. She is able to ambulate. Patient states that she did do a follow-up with the vascular surgeon after her recent hospital stay. She states she had a repeat CT done but does not know her the results. Patient does states she has not taken her blood pressure medications today and she has not checked her glucose levels. Patient is requesting an hCG test as she has been feeling more emotional lately and has irregular periods. She did not check a test at home. No other complaints regarding this. MD Complaint: back pain - Related Data Home Medications Medication Instructions Recorded Confirmed Furosemide [Lasix] 20 mg PO DAILY 02/02/22 05/20/24 Omeprazole 20 mg PO DAILY 02/02/22 05/20/24 Potassium Chloride ER [K-Dur 20] 20 meq PO DAILY 02/02/22 05/20/24 Lisinopril-Hctz 10-12.5 mg 1 tab PO DAILY 05/20/24 05/20/24 [Zestoretic 10-12.5] Naproxen [Naprosyn] 500 mg PO DAILY 05/20/24 05/20/24 Previous Rx's Medication Instructions Recorded Cyclobenzaprine [Flexeril] 10 mg PO TID PRN #15 tab 05/14/24 Ketorolac [Toradol] 10 mg PO Q8HR #15 tab 10/03/24 Lidocaine 5% Patch [Lidoderm] 1 each TP DAILY 14 Days #14 patch 10/03/24 Allergies Allergy/AdvReac Type Severity Reaction Status Date / Time chicken derived [Chicken] Allergy Swelling Verified 10/03/24 14:27 Review of Systems ROS Statement: Those systems with pertinent positive or pertinent negative responses have been documented in the HPI. ROS Other: All systems not noted in ROS Statement are negative. Constitutional: Reports: as per HPI. Denies: fever, chills Respiratory: Reports: as per HPI Cardiovascular: Reports: as per HPI. Denies: chest pain, dyspnea on exertion, orthopnea, syncope Gastrointestinal: Reports: as per HPI. Denies: abdominal pain Musculoskeletal: Reports: back pain Skin: Reports: as per HPI Neurological: Reports: as per HPI Past Medical History Past Medical History: Diabetes Mellitus, Hypertension Additional Past Medical History / Comment(s): obesity, back pain History of Any Multi-Drug Resistant Organisms: None Reported Past Surgical History: Orthopedic Surgery Additional Past Surgical History / Comment(s): Left hand tendon surgery Past Anesthesia/Blood Transfusion Reactions: No Reported Reaction Past Psychological History: ADD/ADHD Smoking Status: Never smoker Past Alcohol Use History: None Reported Past Drug Use History: None Reported - Past Family History Father Family Medical History: Hypertension Mother Family Medical History: Diabetes Mellitus General Exam Limitations: no limitations General appearance: alert, in no apparent distress Head exam: Present: atraumatic, normocephalic Eye exam: Present: normal appearance ENT exam: Present: normal exam Neck exam: Present: normal inspection, full ROM. Absent: tenderness Respiratory exam: Present: normal lung sounds bilaterally Cardiovascular Exam: Present: normal rhythm, tachycardia GI/Abdominal exam: Present: soft, normal bowel sounds. Absent: distended, tenderness, guarding, rebound, rigid Extremities exam: Present: normal inspection, full ROM Back exam: Present: normal inspection, full ROM, tenderness (Tenderness over the mid thoracic spine worse over the right paraspinal muscle. Pain is reproducible on exam. No ecchymosis no rash noted. EHL intact b/l. Negative straight leg test b/l. normal ROM of UE b/l), muscle spasm. Absent: CVA tenderness (R), CVA tenderness (L) Neurological exam: Present: alert, altered, oriented X3, CN II-XII intact, normal gait Psychiatric exam: Present: normal affect, normal mood Skin exam: Present: warm, dry Course Vital Signs 10/03/24 10/03/24 10/03/24 14:28 15:30 16:57 Temperature 98.2 F Pulse Rate 103 H 88 70 Respiratory 18 16 16 Rate Blood Pressure 164/124 185/123 136/82 O2 Sat by Pulse 97 97 99 Oximetry - Reevaluation(s) Reevaluation #1: 10/03/24 1634 Discussed lab results with the patient as well as the conversation with Dr. Villalba the vascular surgeon who did the follow-ups for the possible dissection. She will reevaluated the patient's chart and she states that she does not believe there is her true aortic dissection seen on imaging. She states that it if it is reproducible pain then there is low suspicion pain is vascular in n ature. Again the pain is reproducible. Patient was given a dose of labetalol in the emergency room which immediately brought down her blood pressure and heart rate. Repeat blood pressure is 138/82. Patient was already starting to feel better. The EKG shows normal sinus rhythm at a rate at 90 bpm with no acute ST segment elevation or T wave changes, no ectopy noted. The patient was given a dose of Toradol and Norflex in the emergency room and her pain has resolved. I did discussed following up with a specialist as an outpatient for further evaluation and management. I discussed following up with Dr. Villalba as well as her PCP as well. She understands and agrees to treatment and discharge plan. She understands signs return to the emergency room. Medical Decision Making - Medical Decision Making Was pt. sent in by a medical professional or institution (, PA, TABLE MACHINE OPERATOR, urgent care, hospital, or [facility]...) When possible be specific @ -[No] Did you speak to anyone other than the patient for history (EMS, parent, family, police, friend...)? What history was obtained from this source @ -I spoke with Dr. Villalba the patients vascular surgeon regarding patient's history, CT findings and her current back pain. She believes that the patient does not have a true aortic dissection seen on CT and that if her pain is reproducible it is likely not vascular in nature. Did you review nursing and triage notes (agree or disagree)? Why? @ -Yes I reviewed nursing and triage notes Were old charts reviewed (outside hosp., previous admission, EMS record, old EKG, old radiological studies, urgent care reports/EKG's, [facility] records)? Report findings @ -Previous charts were reviewed including recent ER visits and previous admissions with CT scans and multiple consultation reports Differential Diagnosis (chest pain, altered mental status, abdominal pain women, abdominal pain men, vaginal bleeding, weakness, fever, dyspnea, syncope, headache, dizziness, GI bleed, back pain, seizure, CVA, palpatations, mental health, musculoskeletal)? @ -Muscle spasm, acute on chronic back pain, morbid obesity, uncontrolled hypertension EKG interpreted by me (3pts min.). @ -EKG shows normal sinus rhythm at a rate of [address] segment elevation or T wave changes, normal MD intervals, no ectopy noted. X-rays interpreted by me (1pt min.). @ -[None done] CT interpreted by me (1pt min.). @ -[None done] U/S interpreted by me (1pt. min.). @ -[None done] What testing was considered but not performed or refused? (CT, X-rays, U/S, labs)? Why? @ -[None] What meds were considered but not given or refused? Why? @ -Narcotics. This is a chronic pain medication therefore no narcotics were given at today's visit. Her pain was improved with Norflex and Toradol alone Did you discuss the management of the patient with other professionals (professionals i.e. , PA, TABLE MACHINE OPERATOR, lab, RT, psych nurse, social media executive, power reactor supervisor, teacher, booking officer, field nurse case manager)? Give summary @ -I discussed management with Dr. Villalba the patient's vascular specialist as well as the ED physician Dr. Jin today. Was smoking cessation discussed for >3mins.? @ -[No] Was critical care preformed (if so, how long)? @ -[No] Were there social determinants of health that impacted care today? How? (Homelessness, low income, unemployed, alcoholism, drug addiction, transportation, low edu. Level, literacy, decrease access to med. care, [facility], rehab)? @ -[No] Was there de-escalation of care discussed even if they declined (Discuss DNR or withdrawal of care, Hospice)? DNR status @ -[No] What co-morbidities impacted this encounter? (DM, HTN, Smoking, COPD, CAD, Cancer, CVA, ARF, Chemo, Hep., AIDS, mental health diagnosis, sleep apnea, morbid obesity)? @ -Hypertension, diabetes, morbid obesity, chronic back pain Was patient admitted / discharged? Hospital course, mention meds given and route, prescriptions, significant lab abnormalities, going to OR and other pertinent info. @ -Patient is feeling better on reevaluation. Her pain has improved as well as her blood pressure. I discussed continuing her at home medications. I will add in Toradol for treatment plan for pain as well as Lidoderm patches. Discussed following up with a resource conservation specialist for reevaluation. Discussed following up with her PCP as well as her cardiovascular surgeon as well. She understands and agrees to this plan. Undiagnosed new problem with uncertain prognosis? @ -[No] Drug Therapy requiring intensive monitoring for toxicity (Heparin, Nitro, Insuli n, Cardizem)? @ -[No] Were any procedures done? @ -[No] Diagnosis/symptom? @ -Acute on chronic back pain, back spasms,hypertension resolved Acute, or Chronic, or Acute on Chronic? @ -Acute, acute on chronic Uncomplicated (without systemic symptoms) or Complicated (systemic symptoms)? @ -[default] Side effects of treatment? @ -[No] Exacerbation, Progression, or Severe Exacerbation? @ -[No] Poses a threat to life or bodily function? How? (Chest pain, USA, SD, pneumonia, PE, COPD, DKA, ARF, appy, cholecystitis, CVA, Diverticulitis, Homicidal, Suicidal, threat to staff... and all critical care pts) @ -[No] - Lab Data Result diagrams: 10/03/24 15:25 10/03/24 15:25 Lab Results 10/03/24 10/03/24 10/03/24 Range/Units 15:25 15:25 15:25 WBC 7.24 (4.50-10.00) 10*3/uL RBC 4.87 (4.10-5.20) 10*6/uL Hgb 13.9 (12.0-15.0) g/dL Hct 41.3 (37.2-46.3) % MCV 84.8 (80.0-97.0) fL MCH 28.5 (27.0-32.0) pg MCHC 33.7 (32.0-37.0) g/dL Plt Count 475 H (140-440) 10*3/uL MPV 9.0 L (9.5-12.2) fL Immature Gran % (Auto) 0.3 % Neutrophils % 62.5 % Lymphocytes % 28.3 % Monocytes % 7.7 % Eosinophils % 0.6 % Basophils % 0.6 % Immature Gran # 0.02 (0.00-0.04) 10*3/uL Neutrophils # 4.53 (1.80-7.70) 10*3/uL Lymphocytes # 2.05 (0.90-5.00) 10*3/uL Monocytes # 0.56 (0.20-1.00) 10*3/uL Eosinophils # 0.04 (0.04-0.35) 10*3/uL Basophils # 0.04 (0.00-0.10) 10*3/uL Sodium 140 (137-145) mmol/L Potassium 4.3 (3.5-5.1) mmol/L Chloride 108 H (98-107) mmol/L Carbon Dioxide 23 (22-30) mmol/L Anion Gap 9 mmol/L BUN 16 (7-17) mg/dL Creatinine 0.79 (0.52-1.04) mg/dL Est GFR (CKD-EPI)AfAm >90 (>60 ml/min/1.73 sqM) Est GFR (CKD-EPI)NonAf >90 (>60 ml/min/1.73 sqM) Glucose 108 H (74-99) mg/dL Calcium 9.5 (8.4-10.2) mg/dL Total Bilirubin 0.9 (0.2-1.3) mg/dL AST 26 (14-36) U/L ALT 36 H (4-34) U/L Alkaline Phosphatase 69 (38-126) U/L Total Protein 8.1 (6.3-8.2) g/dL Albumin 4.2 (3.5-5.0) g/dL Urine HCG, Qual Not Detected (Not Detectd) - EKG Data -: EKG Interpreted by Me EKG shows normal: sinus rhythm Rate: normal EKG Comments: EKG shows normal sinus rhythm at a rate of 90 bpm with no acute ST segment elevation or T wave changes, normal MD intervals, no ectopy - Radiology Data Radiology results: report reviewed, image reviewed Disposition Clinical Impression: Back pain, Hypertension, Back spasm Disposition: HOME SELF-CARE Condition: Good Instructions (If sedation given, give patient instructions): Muscle Spasm (ED), Chronic Back Pain (DC) Prescriptions: Lidocaine 5% Patch [Lidoderm] 1 each TP DAILY 14 Days #14 patch Ketorolac [Toradol] 10 mg PO Q8HR #15 tab Is patient prescribed a controlled substance at d/c from ED?: No Referrals: Candelaria Menjivar MD [Primary Care Provider] - 1-2 days Sher Miramontes DO [Doctor of Osteopathic Medicine] - 1-2 days Time of Disposition: 17:54
== END 2024-10-03 18:28 | disposition home or self-care (01) ==
LOC: EC 14:12
DX: M54.9 Dorsalgia, unspecified (principal); G89.29 Other chronic pain; M62.830 Muscle spasm of back; I10 Essential (primary) hypertension; E11.9 Type 2 diabetes mellitus without complications; E66.01 Morbid (severe) obesity due to excess calories; Z68.44 Body mass index [BMI] 60.0-69.9, adult; Z91.014 Allergy to mammalian meats
CPT/HCPCS: 36415; 93005; 80053; 85025; 81025; 99284; 96374; 96375; 96372; J2360; J1885; J1920

== ENCOUNTER 2024-11-07 18:16 | Emergency (ER) | payer BC ==
[2024-11-07] MEDS: diphenhydrAMINE 25 MG CAP PO STA (19:31)
[2024-11-07] MEDS: METOCLOPRAMIDE 10 MG TAB PO STA (19:31)
[2024-11-07] MEDS: KETOROLAC 15 MG/ML 1 ML VIAL IM STA (19:31)
[2024-11-07] MEDS: ACETAMINOPHEN TAB 500 MG TAB PO STA (19:31)
--- NOTE | 2024-11-07 19:47 | CT ---
EXAMINATION TYPE: CT brain wo con CT DLP: 1097.4 mGycm, Automated exposure control for dose reduction was used. DATE OF EXAM: 11/07/2024 7:42 PM COMPARISON: None. CLINICAL INDICATION:Female, 29 years old with history of Head injury, Hit head last night. No LOC, no thinners. C/O nausea. TECHNIQUE: Brain: Multiple axial CT images of the brain were obtained without IV contrast. . Coronal and sagitta l reformats reviewed. FINDINGS: Brain: Extra-axial spaces: No abnormal extra-axial fluid collections. Ventricular system: Within normal limits Cerebral parenchyma: No acute intraparenchymal hemorrhage or mass effect. The clancy-white junction is well differentiated. Cerebellum: Unremarkable. Mass effect: No evidence of midline shift. Intracranial vasculature: unremarkable Soft tissues: Normal. Calvarium/osseous structures: No depressed skull fracture. Paranasal sinuses and mastoid air cells: Minimal mucosal thickening in the inferior left maxillary si nus. The remaining paranasal sinuses are clear. The mastoid air cells are clear. Visualized orbits: Orbital contents are intact. IMPRESSION: No acute intracranial process. [facility], , 11/07/2024 7:45 PM
--- NOTE | 2024-11-07 19:59 | ED ---
General Adult HPI - General Chief complaint: Headache Stated complaint: dizzy,nausea,headache Time Seen by Provider: 11/07/24 18:55 Source: patient Mode of arrival: ambulatory Limitations: no limitations - History of Present Illness Initial comments: Patient has a past medical of 29-year female past medical history hypertension presenting for headache.. Patient states that yesterday she was fall asleep in her chair and then fell forward hitting her head against the wall. Denies loss of consciousness. This morning woke up with a sharp headache on the right side of her head. States this afternoon she noted dizziness upon standing with associated nausea. Denies episodes emesis. Denies neck pain. Denies strokelike symptoms such as changes in vision, focal numbness or weakness, slurred speech. Took ibuprofen 800 mg at noon today with mild proving of symptoms. Denies fevers, chills, chest pain, difficulty in breathing, abdominal pain, episodes of emesis, diarrhea. Is not on blood thinners. - Related Data Home Medications Medication Instructions Recorded Confirmed Furosemide [Lasix] 20 mg PO DAILY 02/02/22 05/20/24 Omeprazole 20 mg PO DAILY 02/02/22 05/20/24 Potassium Chloride ER [K-Dur 20] 20 meq PO DAILY 02/02/22 05/20/24 Lisinopril-Hctz 10-12.5 mg 1 tab PO DAILY 05/20/24 05/20/24 [Zestoretic 10-12.5] Naproxen [Naprosyn] 500 mg PO DAILY 05/20/24 05/20/24 Previous Rx's Medication Instructions Recorded Cyclobenzaprine [Flexeril] 10 mg PO TID PRN #15 tab 05/14/24 Ketorolac [Toradol] 10 mg PO Q8HR #15 tab 10/03/24 Lidocaine 5% Patch [Lidoderm] 1 each TP DAILY 14 Days #14 patch 10/03/24 Allergies Allergy/AdvReac Type Severity Reaction Status Date / Time chicken derived [Chicken] Allergy Swelling Verified 10/03/24 14:27 Review of Systems ROS Statement: Those systems with pertinent positive or pertinent negative responses have been documented in the HPI. ROS Other: All systems not noted in ROS Statement are negative. Past Medical History Past Medical History: Diabetes Mellitus, Hypertension Additional Past Medical History / Comment(s): obesity, back pain History of Any Multi-Drug Resistant Organisms: None Reported Past Surgical History: Orthopedic Surgery Additional Past Surgical History / Comment(s): Left hand tendon surgery Past Anesthesia/Blood Transfusion Reactions: No Reported Reaction Past Psychological History: ADD/ADHD Smoking Status: Never smoker Past Alcohol Use History: None Reported Past Drug Use History: None Reported - Past Family History Father Family Medical History: Hypertension Mother Family Medical History: Diabetes Mellitus General Exam - General Exam Comments Initial Comments: PE: CONSTITUTIONAL: No apparent distress, well appearing SKIN: Warm, dry, no jaundice, hives or petechiae EYES: Pupils are equally round, extraocular movements intact without nystagmus, clear conjunctiva, non-icteric sclera HENT: Normocephalic, small abrasion of the right occiput moist mucus membranes, oropharynx clear without exudates NECK: , Full range of motion, normal appearance no midline spinal tenderness palpation PULMONARY: Clear to auscultation without wheezes, rhonchi, or rales, normal excursion, no accessory muscle use and no stridor CARDIOVASCULAR: Regular rate, rhythm, normal S1 and S2. No appreciated murmurs, rubs or gallops. Strong radial pulses with intact distal perfusion. No lower extremity edema GASTROINTESTINAL: Soft, active bowel sounds throughout, non-tender, non- distended, no palpable masses, no rebound or guarding. No hepatosplenomegaly GENITOURINARY: MUSCULOSKELETAL: Extremities have no gross deformity, no edema, redness, or swelling. No calf swelling NEUROLOGIC:_a/o x 3, GCS 15, normal mentation and speech. Moves all extremities x 4 without motor or sensory deficit, cranial nerves: II (visual polo without defects), III, IV and (extraocular movements are intact, pupils are equal with normal reaction to light), V (intact facial sensation and jaw opening), VII (no facial droop), IX and X (normal palate movement, midline uvula, normal voice), XI (symmetrical shoulder shrug and lateral head rotation against resistance), XII (midline tongue protrusion). Motor strength is 5/5 in all extremities. No abnormal movements. Normal muscle tone. Sensation to light touch is intact bilaterally. No cerebellar signs ([id number], [id number], and rapid alternating movements are normal) PSYCHIATRIC:_normal mood and affect, thought process is clear and linear Limitations: no limitations Course Vital Signs 07/17/25 07/17/25 07/17/25 18:21 20:04 20:30 Temperature 98 F 98.2 F Pulse Rate 82 82 84 Respiratory 16 18 18 Rate Blood Pressure 191/110 181/119 179/98 O2 Sat by Pulse 99 100 100 Oximetry Medical Decision Making - Medical Decision Making Was pt. sent in by a medical professional or institution (, PA, HOT METAL CRANE OPERATOR, urgent care, hospital, or snf...) When possible be specific @ -No Did you speak to anyone other than the patient for history (EMS, parent, family, police, friend...)? What history was obtained from this source @ -No Did you review nursing and triage notes (agree or disagree)? Why? @ -I reviewed nursing and triage notes Were old charts reviewed (outside hosp., previous admission, EMS record, old EKG, old radiological studies, urgent care reports/EKG's, snf records)? Report findings @ -Medical records reviewed Differential Diagnosis (chest pain, altered mental status, abdominal pain women, abdominal pain men, vaginal bleeding, weakness, fever, dyspnea, syncope, headache, dizziness, GI bleed, back pain, seizure, CVA, palpatations, mental health, musculoskeletal)? @Differential Headache: Migraine, tension, cluster, carbon monoxide, central venous thrombosis, pension karma temporal arteritis, acute closure glaucoma, intercranial hemorrhage, mastoiditis, sinusitis, head injury, this is not meant to be an all-inclusive list. EKG interpreted by me (3pts min.). @ -As above X-rays interpreted by me (1pt min.). @ -None done CT interpreted by me (1pt min.). @Personally reviewed CT brain I see no evidence of hemorrhage or skull fracture. I agree with radiologist interpretation U/S interpreted by me (1pt. min.). @ -None done What testing was considered but not performed or refused? (CT, X-rays, U/S, labs)? Why? @Due to hypertension, labs EKG were considered however patient denied chest pain, shortness of breath or strokelike symptoms What meds were considered but not given or refused? Why? @ -Home dose of lisinopril as well as Catapres were considered however patient preferred to be discharged to take her medications at home. She had movement of her headache without focal neurologic deficits, no complaints of chest pain or shortness of breath, well-appearing on exam feel this is reasonable Did you discuss the management of the patient with other professionals (professionals i.e. , PA, HOT METAL CRANE OPERATOR, lab, RT, psych nurse, social studies teacher, engineering clerk, teacher, helicopter officer, oil field caser)? Give summary @ -No Was smoking cessation discussed for >3mins.? @ -No Was critical care preformed (if so, how long)? @ -No Were there social determinants of health that impacted care today? How? (Homelessness, low income, unemployed, alcoholism, drug addiction, transportation, low edu. Level, literacy, decrease access to med. care, long-term, rehab)? @ -No Was there de-escalation of care discussed even if they declined (Discuss DNR or withdrawal of care, Hospice)? @ -No What co-morbidities impacted this encounter? (DM, HTN, Smoking, COPD, CAD, Cancer, CVA, ARF, Chemo, Hep., AIDS, mental health diagnosis, sleep apnea, morbid obesity)? @Hypertension Was patient admitted / discharged? Hospital course, mention meds given and route, prescriptions, significant lab abnormalities, going to OR and other pertinent info. @Discharged- 29-year female history hypertension presenting today for headache after hitting her head last night. No focal numbness deficits on exam. Blood pressures 190/110 on arrival will recheck, possibly due to pain however pt also did not take her home lisinopril today so this is likely contributing as well. Due to headache and nausea after head injury will obtain CT brain to ensure no evidence of hemorrhage. Additionally patient received Toradol, Tylenol, Reglan and Benadryl. She is agreeable plan of care. not on thinners Imaging reviewed, no acute process. On reassessment patient endorsed an improvement in her headache. Discussed with patient signs symptoms to monitor for wanting return to the ER such as strokelike symptoms, failure of headache to resolve in the next 24 hours, changes in vision, numbness, weakness, confusion, vomiting or fevers. Blood pressure 181/119 on recheck. Patient states she did not take her home blood pressure medications today. I did consider administering lisinopril and Catapres however patient would prefer discharge home to take her medications. Given patient is asymptomatic of other signs of hypertensive emergency I feel this is reasonable. In my medical judgment there is currently no evidence of an immediate life- threatening or surgical condition. Discharge is therefore indicated at this time. Discharge treatment instructions, follow up instructions, and appropriate em ergency department return precautions were discussed with the patient and/or medical decision maker. Patient and/or medical decision maker expressed understanding of and agreed with the treatment plan, follow up instructions, and emergency department return precaution. All patient's and/or medical decision maker's questions were answered. The patient was advised that a small risk still exists that a serious condition could develop and was therefore instructed to return to the ED for any changes in symptoms, persistent symptoms, inability to obtain proper follow-up or for any further concerns. Patient received verbal and written instructions for this condition. Undiagnosed new problem with uncertain prognosis? @ -No Drug Therapy requiring intensive monitoring for toxicity (Heparin, Nitro, Insulin, Cardizem)? @ -No Were any procedures done? @ -No Diagnosis/symptom? @Headache, hypertension Acute, or Chronic, or Acute on Chronic? Acute Uncomplicated (without systemic symptoms) or Complicated (systemic symptoms)? @Uncomplicated Side effects of treatment? @ -No Exacerbation, Progression, or Severe Exacerbation? @ -No Poses a threat to life or bodily function? How? (Chest pain, [place], [place], pneumonia, PE, COPD, DKA, ARF, appy, cholecystitis, CVA, Diverticulitis, Homicidal, Suicidal, threat to staff... and all critical care pts) @ -No Disposition Clinical Impression: Headache, Hypertension Disposition: HOME SELF-CARE Condition: Good Instructions (If sedation given, give patient instructions): Acute Headache (ED) Additional Instructions: Every disease is a spectrum and a small chance still exists that a serious condition could develop, for this reason, please monitor yourself closely for new, changing or worsening symptoms, symptoms that persist beyond 24 hours, fever, strokelike symptoms such as changes in vision, slurred speech, sudden onset confusion, numbness or weakness, inability to tolerate/keep down fluids or your medications, inability to follow up with outpatient providers as instructed and should you experience these symptoms or should you have any further concerns for your wellbeing please return to the ED or call 911 immediately. Your pain can be treated with ibuprofen and acetaminophen. You can take up to 40 0-600 mg of ibuprofen (Advil, Motrin) 3 times daily (every 8 hours) but can also use lower doses if this relieves your pain. Some people prefer naproxen (Aleve, Naprosyn) which can be taken in doses of 500 mg up to twice a day. Do not take both of these medicines together, and do not combine either with ketorolac (Toradol), meloxicam (Mobic), or indomethacin (Tivorbex). Some people can develop stomach discomfort with higher doses of either ibuprofen or naproxen, if this develops decrease your dose or stop taking it. If you need to take this dose daily for more than a week, please schedule an appointment for re- evaluation with your PCP. Please take these medications with food. You can take up to 1000 mg of acetaminophen (Tylenol) every 6 hours. Be careful as this is included in some medicines like Nyquil, [place], Percocet, Vicodin, STANBACK, Goody's Powders, and Excedrin. Please take your home blood pressure medications upon returning home. PLEASE call your primary care physician as soon as possible to arrange / discuss plan for followup appointment. Appointment in the next 1-3 days is strongly encouraged if possible. PLEASE let us know here before you leave if there is anything further we can do to be of any assistance. Take care and feel Better! Is patient prescribed a controlled substance at d/c from ED?: No Referrals: Candelaria Menjivar MD [Primary Care Provider] - 1-2 days
[2024-11-07 20:05] VITALS: RESP 18
[2024-11-07] MEDS: LISINOPRIL-HCTZ 10-12.5 MG 1 EACH TAB PO STA (20:27)
[2024-11-07 20:33] VITALS: BP 179/98; PULSE 84; TEMP 98.2
== END 2024-11-07 20:33 | disposition home or self-care (01) ==
LOC: EC 18:16
DX: I10 Essential (primary) hypertension (principal); Z91.018 Allergy to other foods; W22.01XA Walked into wall, initial encounter
CPT/HCPCS: 70450; 99284; 96372; J1885